=== PATIENT | female | born 1955 | race African-American/Black ===

== ENCOUNTER 2016-08-12 00:36 | Emergency (ER) | payer MEDICAID, OTHER ==
[~2016-08-12] VITALS: Ht 165.1 cm; Wt 59.0 kg
--- NOTE | 2016-08-12 01:02 | ER.PDOC ---
General Chief Complaint: Dyspnea/Respdistress Stated Complaint: FEVER TRAVEL OUT OF US: No Time seen by MD: 00:58 Source: patient Exam Limitations: no limitations History of Present Illness Initial Comments Sent from [facility] for possible aspiration and low Oxygen. Patient is aphasic. Recently discharged from [facility] after receiving treatment for 6 weeks for meningitis. Allergies: Coded Allergies: No Known Allergies (Unverified , 08/12/16) Past Medical History Medical History: hypertension LMP (females 10-50): unknown Social History Smoking: non-smoker Alcohol Use: none Drug Use: none Review of Systems Constitutional: no symptoms reported EENTM: no symptoms reported Respiratory: see HPI Cardiovascular: no symptoms reported Gastrointestinal: no symptoms reported All Other Systems: Reviewed and Negative Physical Exam General Appearance: No Apparent Distress Neck: Non-Tender Respiratory: chest non-tender, lungs clear, normal breath sounds, no respiratory distress CVS: reg rate & rhythm, no murmur, no gallop, pulses nml, nml capillary refill Gastrointestinal: Normal Bowel Sounds, No Organomegaly, No Pulsatile Mass, Other (Feeding tube) Back: Normal Inspection Extremities: Normal Inspection Neurologic/Psychiatric: Aphasia Results/Orders Results/Orders Laboratory Tests Test 08/12/16 00:52 08/12/16 01:15 Blood Gas Sample Site Rt radial artery Blood Gas pH 7.559 (7.350-7.450) Blood Gas PCO2 27.5 mmHg (35.0-45.0) Blood Gas PO2 76.5 mmHg (75.0-100.0) Blood Gas HCO3 24.0 mmol/L (22.0-26.0) Blood Gas Base Excess 2.7 mmol/L (-2.0-2.0) Tej Test Positive Arterial Blood Oxygen Saturation 95.7 % (95-) Deoxyhemoglobin 4.2 % (0.2-0.6) Carboxyhemoglobin 1.4 % (0.5-1.5) Methemoglobin 0.4 % (0.2-0.6) Total Hemoglobin 12.2 % (13.5-17.5) Total Oxygen Concentration 16.2 % (13.5-17.5) Lactic Acid (Blood Gas) 1.5 MMOL/L (0.5-1.0) Blood Gas Temperature 37.0 Oxygen Delivery Method (LAB) Room air FiO2 21 % (20-101) Bicarbonate 24.9 mmol/L (23-27) White Blood Count 11.7 10^3/uL (4.5-11.0) Red Blood Count 3.90 10^6/uL (4.00-5.20) Hemoglobin 10.9 g/dL (12.0-15.0) Hematocrit 35.5 % (36.0-46.0) Mean Corpuscular Volume 91.0 fL (78-100) Mean Corpuscular Hemoglobin 27.9 pg (26-34) Mean Corpuscular Hemoglobin Concent 30.7 g/dL (33-37) Red Cell Distribution Width 17.6 % (11.5-14.5) Platelet Count 432 10^3/uL (150-400) Mean Platelet Volume 9.8 fL (7.8-11.0) Neutrophils (%) (Auto) 68.2 % (41.0-85.0) Lymphocytes (%) (Auto) 17.5 % (24.0-44.0) Monocytes (%) (Auto) 7.4 % (5.0-12.0) Neutrophils # (Auto) 8.0 10^3/uL (1.8-7.7) Lymphocytes # (Auto) 2.1 10^3/uL (1.0-4.8) Monocytes # (Auto) 0.9 10^3/uL (0.3-0.8) Absolute Immature Granulocyte (auto 0.04 10^3 u/L (0-2) Eosinophils % 4.6 % (0.0-5.0) Basophils % 2.0 % (0.0-0.2) Basophils # 0.2 10^3/uL (0.0-0.1) Eosinophil Count 0.5 10^3/uL (0.0-0.2) Sodium Level 153 mmol/L (132-145) Potassium Level 3.8 mmol/L (3.6-5.2) Chloride Level 114.0 mmol/L (96-109) Carbon Dioxide Level 28.0 mmol/L (20.0-32) Anion Gap 14.8 Blood Urea Nitrogen 24 mg/dL (7-18) Creatinine 0.68 mg/dL (0.59-1.40) Estimated GFR () 106.4 BUN/Creatinine Ratio 35.0 Glucose Level 148 mg/dL (70-110) Calculated Osmolality 322.5 Calcium Level 9.6 mg/dL (8.4-10.5) Total Bilirubin 0.1 mg/dL (0.2-1.0) Aspartate Amino Transf (AST/SGOT) 11 U/L (0-35) Alanine Aminotransferase (ALT/SGPT) 18 U/L (12-78) Alkaline Phosphatase 103 U/L (50-136) Total Protein 8.4 g/dL (6.4-8.2) Albumin 3.1 g/dL (3.4-5.0) Globulin 5.3 Percent Immature Gran (Cell Imm) 0.30 % (0.00-0.50) EKG/XRAY/CT/US XRAY: chest (normal) Departure Time of Disposition: 01:50 Disposition: 01 HOME, SELF-CARE Impression: Primary Impression: Dysphagia Qualified Codes: R13.10 - Dysphagia, unspecified Condition: Stable Additional Instructions: Continue home mediations F/U with PCP in 2-3 days ELIZABETH WELCH MD Aug 12, 2016 01:02
[2016-08-12 01:10] LABS: ABG PCO2 27.5 mmHg (35.0-45.0); ABG PH 7.559 (7.350-7.450); BE(B) 2.7 mmol/L (-2.0-2.0); pO2 76.5 mmHg (75.0-100.0)
[2016-08-12 01:26] LABS: BASOPHIL # 0.2 10^3/uL (0.0-0.1); EOSINOPHIL # 0.5 10^3/uL (0.0-0.2); EOSINOPHIL % 4.6 % (0.0-5.0); HEMATOCRIT 35.5 % (36.0-46.0); HEMOGLOBIN 10.9 g/dL (12.0-15.0); LYMPHOCYTES # 2.1 10^3/uL (1.0-4.8); LYMPHOCYTES % 17.5 % (24.0-44.0); MEAN CELL HGB 27.9 pg (26-34); MEAN CELL HGB CONCENTRATION 30.7 g/dL (33-37); MEAN PLATELET VOLUME 9.8 fL (7.8-11.0); MONOCYTES # 0.9 10^3/uL (0.3-0.8); MONOCYTES % 7.4 % (5.0-12.0); NEUTROPHILS % 68.2 % (41.0-85.0); RED CELL DISTRIBUTION WIDTH 17.6 % (11.5-14.5); WHITE BLOOD CELL 11.7 10^3/uL (4.5-11.0)
--- NOTE | 2016-08-12 01:32 | DIREP ---
PROCEDURE:CHEST 1 VIEW COMPARISON:None. INDICATIONS:Fever FINDINGS: LUNGS/PLEURA:No significant pulmonary parenchymal abnormalities. No effusions. VASCULATURE:Normal. Unremarkable pulmonary vasculature. CARDIAC:Normal. No cardiac silhouette abnormality or cardiomegaly. MEDIASTINUM:Normal. No visible mass or adenopathy. BONES:Normal. No fracture or visible bony lesion. OTHER:Negative. CONCLUSION:Normal examination. Dictated by: Abel Mcarthur Jr. on 08/12/2016 at 01:31 AM
[2016-08-12 01:44] LABS: CALCIUM 9.6 mg/dL (8.4-10.5)
[2016-08-12 02:15] VITALS: BP 139/86
--- NOTE | 2016-08-12 02:15 | NUR ---
[facility] HERE FOR TRANSFER TO [place]
== END 2016-08-12 02:15 | disposition home or self-care (01) ==
LOC: ER 00:36
DX: R13.10 Dysphagia, unspecified (principal); I10 Essential (primary) hypertension; R47.01 Aphasia; R50.9 Fever, unspecified; Z97.8 Presence of other specified devices
CPT/HCPCS: 36415; 36600; 71010; 80053; 82803; 85025; 87040; 99284; 99285

== ENCOUNTER 2016-08-13 09:57 | Emergency (ER) | payer MEDICAID, OTHER ==
[~2016-08-13] VITALS: Ht 162.6 cm; Wt 57.6 kg
--- NOTE | 2016-08-13 09:57 | NUR ---
ARRIVAL PT TO RM 1 VIA EMS. PT AWAKE BUT NOT FOLLOWING COMMANDS. PT HAS HCM IN PLACE. PT WILL LOOK YOU IN THE EYE AT TIMES BUT WILL NOT FOLLOW COMMANDS. PIV STARTED RT FOREARM 18G. NS GOING WIDE OPEN. PT PLACED ON MONITOR AND TRIAGE DONE
[2016-08-13] MEDS ORDERED: TYLENOL PO ONE (10:16)
[2016-08-13 10:18] LABS: BASOPHIL # 0.1 10^3/uL (0.0-0.1); BASOPHIL % 0.6 % (0.0-0.2); HEMATOCRIT 38.9 % (36.0-46.0); HEMOGLOBIN 11.4 g/dL (12.0-15.0); LYMPHOCYTES # 0.7 10^3/uL (1.0-4.8); LYMPHOCYTES % 4.6 % (24.0-44.0); MEAN CELL HGB 27.3 pg (26-34); MEAN CELL HGB CONCENTRATION 29.3 g/dL (33-37); MEAN CORP VOLUME 93.1 fL (78-100); MEAN PLATELET VOLUME 9.5 fL (7.8-11.0); MONOCYTES # 1.1 10^3/uL (0.3-0.8); MONOCYTES % 7.3 % (5.0-12.0); NEUTROPHIL # 12.7 10^3/uL (1.8-7.7); NEUTROPHILS % 87.4 % (41.0-85.0); PLATELET COUNT 429 10^3/uL (150-400); RED CELL DISTRIBUTION WIDTH 17.9 % (11.5-14.5); WHITE BLOOD CELL 14.6 10^3/uL (4.5-11.0)
[2016-08-13 10:27] LABS: ABG PCO2 36.8 mmHg (35.0-45.0); ABG PH 7.429 (7.350-7.450); BE(B) -0.2 mmol/L (-2.0-2.0); HCO3act 23.8 mmol/L (22.0-26.0); pO2 65.9 mmHg (75.0-100.0)
[2016-08-13] MEDS ORDERED: FEVERALL RC ONE (10:28)
--- NOTE | 2016-08-13 10:30 | NUR ---
PEG TUBE ATTEMPTED TO IRRIGATE G TUBE. UNABLE TO PASS ANYTHING. APPEARS TO HAVE PARTICULATE IN THE TUBING
--- NOTE | 2016-08-13 10:43 | DIREP ---
PROCEDURE:CHEST 1 VIEW COMPARISON:[facility], CR, XRAY CHEST SINGLE VW, 08/12/2016, 00:30 AM. INDICATIONS:RESP DISTRESS FINDINGS: LUNGS/PLEURA:Slight prominence of interstitial markings in both lungs most likely related to fibrotic stranding. No definite acute pulmonary parenchymal abnormalities. No effusions. VASCULATURE:Normal. Unremarkable pulmonary vasculature. CARDIAC:Normal. No cardiac silhouette abnormality or cardiomegaly. MEDIASTINUM:Normal. No visible mass or adenopathy. BONES:Mild degenerative changes in the thoracic spine. OTHER:Negative. CONCLUSION:Mild degenerative changes in the thoracic spine. Slight prominence of interstitial markings in both lungs most likely related to fibrotic stranding. No definite evidence of acute abnormalities. These findings are unchanged from August 12, 2016. If clinical symptoms persist or worsen, CT scan could be of aid in further evaluation for a subtle abnormality. Dictated by: Armen Caban M.D. on 08/13/2016 at 10:38 AM
[2016-08-13 10:44] LABS: CALCIUM 9.6 mg/dL (8.4-10.5); CARBON DIOXIDE 27.8 mmol/L (20.0-32)
[2016-08-13 11:19] LABS: BILIRUBIN,URINE NEGATIVE (NEGATIVE); UROBILINOGEN,URINE NORMAL (NEGATIVE)
--- NOTE | 2016-08-13 11:23 | NUR ---
[facility] CALLED [facility] TRANSFER LINE FOR TRANSFER ARRANGEMENT. PER [facility] THEY WILL FIND AN ICU DOCTOR AND WILL CALL THE ED BACK
[2016-08-13 11:27] LABS: APPEARANCE,URINE CLOUDY (CLEAR); UA COLOR STRAW (YELLOW)
[2016-08-13 11:28] LABS: WBC,URINE TNTC WBC/HPF (0-2)
--- NOTE | 2016-08-13 11:29 | NUR ---
[facility] CALLED BACK INFORMING US THAT THEY HAVE NO ICU BEDS
--- NOTE | 2016-08-13 11:31 | ER.PDOC ---
General Chief Complaint: Dyspnea/Respdistress Stated Complaint: RESP DISTRESS Time seen by MD: 11:23 Source: EMS, group home records Exam Limitations: clinical condition History of Present Illness Initial Comments Respiratory distress today. Patient recently discharged from [facility] after spending 14 weeks for bacterial meningitis. She is aphasic. Timing/Duration: 4-6 hours Severity: moderate Allergies: Coded Allergies: No Known Allergies (Unverified , 08/12/16) Past Medical History Medical History: cardiac problems, COPD, diabetes, hypertension Social History Smoking: non-smoker Alcohol Use: none Drug Use: none Review of Systems Constitutional: no symptoms reported Respiratory: see HPI Cardiovascular: no symptoms reported Gastrointestinal: no symptoms reported Musculoskeletal: no symptoms reported Skin: no symptoms reported All Other Systems: Reviewed and Negative Physical Exam General Appearance: No Apparent Distress, WD/WN, Other (aphasic) Neck: Non-Tender, Full Range of Motion, Supple, Normal Inspection Respiratory: chest non-tender, lungs clear, normal breath sounds, no respiratory distress, no accessory muscle use Cardiovascular: Normal Peripheral Pulses, Regular Rate, Rhythm, No Edema, Tachycardia Gastrointestinal: Normal Bowel Sounds, No Organomegaly, No Pulsatile Mass, Non Tender, Other (Feeding tube in place) Extremities: Normal Inspection Neurologic/Psychiatric: Aphasia Results/Orders Results/Orders Laboratory Tests Test 08/13/16 10:05 08/13/16 10:25 08/13/16 11:15 White Blood Count 14.6 10^3/uL (4.5-11.0) Red Blood Count 4.18 10^6/uL (4.00-5.20) Hemoglobin 11.4 g/dL (12.0-15.0) Hematocrit 38.9 % (36.0-46.0) Mean Corpuscular Volume 93.1 fL (78-100) Mean Corpuscular Hemoglobin 27.3 pg (26-34) Mean Corpuscular Hemoglobin Concent 29.3 g/dL (33-37) Red Cell Distribution Width 17.9 % (11.5-14.5) Platelet Count 429 10^3/uL (150-400) Mean Platelet Volume 9.5 fL (7.8-11.0) Neutrophils (%) (Auto) 87.4 % (41.0-85.0) Lymphocytes (%) (Auto) 4.6 % (24.0-44.0) Monocytes (%) (Auto) 7.3 % (5.0-12.0) Neutrophils # (Auto) 12.7 10^3/uL (1.8-7.7) Lymphocytes # (Auto) 0.7 10^3/uL (1.0-4.8) Monocytes # (Auto) 1.1 10^3/uL (0.3-0.8) Absolute Immature Granulocyte (auto 0.01 10^3 u/L (0-2) Eosinophils % 0.0 % (0.0-5.0) Basophils % 0.6 % (0.0-0.2) Basophils # 0.1 10^3/uL (0.0-0.1) Eosinophil Count 0.0 10^3/uL (0.0-0.2) Prothrombin Time 11.3 SEC (9.8-11.9) Prothromb Time International Ratio 1.1 Activated Partial Thromboplast Time 21.6 SEC (24.67-30.72) D-Dimer 7.76 mg/L (0.19-0.41) Sodium Level 153 mmol/L (132-145) Potassium Level 4.0 mmol/L (3.6-5.2) Chloride Level 114.0 mmol/L (96-109) Carbon Dioxide Level 27.8 mmol/L (20.0-32) Anion Gap 15.2 Blood Urea Nitrogen 35 mg/dL (7-18) Creatinine 0.93 mg/dL (0.59-1.40) Estimated GFR () 74.2 BUN/Creatinine Ratio 37.0 Glucose Level 249 mg/dL (70-110) Calculated Osmolality 331.5 Calcium Level 9.6 mg/dL (8.4-10.5) Total Bilirubin 0.2 mg/dL (0.2-1.0) Aspartate Amino Transf (AST/SGOT) 10 U/L (0-35) Alanine Aminotransferase (ALT/SGPT) 19 U/L (12-78) Alkaline Phosphatase 116 U/L (50-136) Total Creatine Kinase 20 U/L (26-192) Creatine Kinase MB 0.4 ng/mL (0.5-3.6) Troponin I 0.17 ng/mL (0.00-0.05) Pro-B-Type Natriuretic Peptide 145 pg/mL (0-125) Total Protein 8.6 g/dL (6.4-8.2) Albumin 3.1 g/dL (3.4-5.0) Globulin 5.5 Percent Immature Gran (Cell Imm) 0.10 % (0.00-0.50) Blood Gas Sample Site Rt bracial artery Blood Gas pH 7.429 (7.350-7.450) Blood Gas PCO2 36.8 mmHg (35.0-45.0) Blood Gas PO2 65.9 mmHg (75.0-100.0) Blood Gas HCO3 23.8 mmol/L (22.0-26.0) Blood Gas Base Excess -0.2 mmol/L (-2.0-2.0) Tej Test N/a Arterial Blood Oxygen Saturation 91.3 % (95-) Deoxyhemoglobin 8.6 % (0.2-0.6) Carboxyhemoglobin 1.0 % (0.5-1.5) Methemoglobin 0.6 % (0.2-0.6) Total Hemoglobin 12.1 % (13.5-17.5) Total Oxygen Concentration 15.3 % (13.5-17.5) Lactic Acid (Blood Gas) 2.6 MMOL/L (0.5-1.0) Blood Gas Temperature 37 Oxygen Delivery Method (LAB) Non-rebreather mask FiO2 100 % (20-101) Bicarbonate 25.0 mmol/L (23-27) Urine Collection Type Cath Urine Color Straw (YELLOW) Urine Appearance Cloudy (CLEAR) Urine Bilirubin Negative MG/DL (NEGATIVE) Urine Ketones Negative (NEGATIVE) Urine Specific [place] 1.020 (1.005-1.035) Urine pH 6 (5.0-6.0) Urine Protein Negative (NEGATIVE) Urine Urobilinogen Normal (NEGATIVE) Urine Nitrate Positive (NEGATIVE) Urine Leukocyte Esterase 500/ul 2+ (NEGATIVE) Urine Blood 250 4+ (NEGATIVE) Urine RBC Tntc RBC/HPF (NONE SEEN) Urine WBC Tntc WBC/HPF (0-2) Urine Squamous Epithelial Cells Rare #/HPF (FEW) Urine Calcium Oxalate Crystals Many (NONE SEEN) Urine Bacteria Many (NONE SEEN) Urine Glucose Normal (NEGATIVE) Administered Medications Medications (Trade) Dose Ordered Sig/Rocio Route PRN Reason Start Time Stop Time Status Last Admin Dose Admin Levofloxacin/ Dextrose 150 ml @ 100 mls/hr STAT ONCE IV 08/13/16 12:30 08/13/16 13:59 08/13/16 12:07 Sodium Chloride 1,728 ml @ 1,200 mls/hr OT STAT IV 08/13/16 12:05 08/13/16 13:31 08/13/16 12:07 Progress Progress Spoke to Sister Omega Hurtado and yunior. Explained detailly of what is going on and they both understood and appreciated the care. They both thanked me. EKG/XRAY/CT/US EKG Comments: Sinus tachycardia XRAY: chest (Nothing acute) Departure Time of Disposition: 12:40 Disposition: 02 XFER SHT-TRM HOSP Impression: Primary Impression: Sepsis Additional Impressions: Respiratory failure UTI (urinary tract infection) STEMI (ST elevation myocardial infarction) Condition: Stable Referrals: KEESHA INFANTE (PCP) PRIMARY CARE PROVIDER Comments Transfer to [facility] for Dr. Gupta. Critical Care Note Total Time (mins): 90 Problem Qualifiers Primary Impression: Sepsis Sepsis type: sepsis due to unspecified organism Qualified Codes: A41.9 - Sepsis, unspecified organism Additional Impressions: Respiratory failure Chronicity: acute Respiratory failure complication: hypoxia Qualified Codes : J96.01 - Acute respiratory failure with hypoxia UTI (urinary tract infection) Urinary tract infection type: catheter-associated UTI Indwelling urinary catheter type: indwelling urethral catheter Encounter type: initial encounter Qualified Codes: T83.511A - Infection and inflammatory reaction due to indwelling urethral catheter, initial encounter; N39.0 - Urinary tract infection, site not specified STEMI (ST elevation myocardial infarction) Involved coronary artery: unspecified coronary artery Qualified Codes: I21.3 - ST elevation (STEMI) myocardial infarction of unspecified site ELIZABETH WELCH MD Aug 13, 2016 11:31
--- NOTE | 2016-08-13 11:34 | NUR ---
[facility] CALLED [facility], TALKED TO [facility], FOR [facility] ICU BEDS. THEIR ER DR IS IN A PT RM AND WILL CALL DR WELCH BACK
[2016-08-13] MEDS ORDERED: NS 1000ML 1,000 ML ONE (11:58)
[2016-08-13] MEDS ORDERED: LEVAQUIN 150 ML IV ONE ×2 (11:58→12:30)
[2016-08-13] MEDS ORDERED: NS IV STA (12:05)
--- NOTE | 2016-08-13 12:10 | NUR ---
DR DAVE HOOK MBA ON PHONE WITH ACCEPTING DR ACOSTA WITH [facility]
--- NOTE | 2016-08-13 12:30 | NUR ---
[facility] DISPATCHED [facility] FOR TRANSFER TO [facility]
[2016-08-13] MEDS ORDERED: TYLENOL RC STA (12:34)
[2016-08-13] MEDS ORDERED: LOVENOX SQ STA (12:36)
[2016-08-13] MEDS ORDERED: LOVENOX SQ ONE (12:39)
--- NOTE | 2016-08-13 12:46 | NUR ---
[facility] NOTIFIED OF TRANSFER
--- NOTE | 2016-08-13 12:55 | NUR ---
[facility] ADDISON EPPS, GIVING REPORT TO [facility]
[2016-08-13 13:05] VITALS: BP 110/67
--- NOTE | 2016-08-13 13:24 | NUR ---
REPORT GIVEN TO MARK YUSUF RN AT [facility]
[2016-08-13 13:25] LABS: BASOPHIL 1 % (0-2); EOSINOPHIL 2 % (1-4); LYMPHOCYTE 2 % (25-36); MONOCYTE 6 % (3-9); SEGMENTED NEUTROPHILS 89 % (31-76)
[2016-08-13 13:26] LABS: TOXIC GRANULATION 1+ (NEGATIVE)
== END 2016-08-13 13:02 | disposition short-term general hospital (02) ==
LOC: EDBD 09:57 → ER 09:57
DX: A41.9 Sepsis, unspecified organism (principal); J96.01 Acute respiratory failure with hypoxia; T83.511A Infection and inflammatory reaction due to indwelling urethral catheter, initial encounter; N39.0 Urinary tract infection, site not specified; I21.3 ST elevation (STEMI) myocardial infarction of unspecified site; R47.01 Aphasia; I10 Essential (primary) hypertension; E11.9 Type 2 diabetes mellitus without complications; J44.9 Chronic obstructive pulmonary disease, unspecified; Z97.8 Presence of other specified devices
CPT/HCPCS: 36415; 36600; 71010; 80053; 81000; 82550; 82553; 82803; 83880; 84484; 85007; 85025; 85379; 85610; 85730; 87040 ×2; 87077; 87086; 87186 ×2; 93005; 96365; 96372; 99291; 99292; J1650; J1956; J7030

== ENCOUNTER 2016-08-29 11:21 | Inpatient (IN) | payer MEDICAID, OTHER ==
[~2016-08-29] VITALS: Ht 162.6 cm; Wt 69.0 kg
--- NOTE | 2016-08-29 11:42 | NUR ---
TRIAGE BROUGHT IN BY AMBULANCE FROM THE PRISON TO ROOM 2. MONITORS APPLIED. PATIENT HAS A TEMP OF 100.4 AXILLARY. REPORT IS THAT SHE HAD 101 TEMP AT THE PRISON AND WAS GIVEN TYLENOL THROUGH HER PEG TUBE. HYSTORY OF ENCEPHALOPATHY. PATIENT IS AWAKE, BUT NON-RESPONSIVE AND UNABLE TO WALK. EYES ARE OPEN, BUT UNABLE TO FOLLOW COMMANDS. REPORT IS THAT SHE IS NORMALLY THIS WAY AND HAS BEEN FOR SOME TIME. IV IN THE RIGHT FOREARM WITH NORMAL SALINE INFUSING. DR FORREST HERE TO SEE PATIENT. LW
[2016-08-29 12:05] LABS: BASOPHIL # 0.1 10^3/uL (0.0-0.1); BASOPHIL % 1.2 % (0.0-0.2); EOSINOPHIL # 0.6 10^3/uL (0.0-0.2); HEMATOCRIT 35.1 % (36.0-46.0); HEMOGLOBIN 10.2 g/dL (12.0-15.0); LYMPHOCYTES # 2.2 10^3/uL (1.0-4.8); LYMPHOCYTES % 19.1 % (24.0-44.0); MEAN CELL HGB 27.7 pg (26-34); MEAN CELL HGB CONCENTRATION 29.1 g/dL (33-37); MEAN CORP VOLUME 95.4 fL (78-100); MEAN PLATELET VOLUME 9.5 fL (7.8-11.0); MONOCYTES # 0.9 10^3/uL (0.3-0.8); MONOCYTES % 7.4 % (5.0-12.0); NEUTROPHIL # 7.9 10^3/uL (1.8-7.7); NEUTROPHILS % 67.1 % (41.0-85.0); RED CELL DISTRIBUTION WIDTH 18.2 % (11.5-14.5); WHITE BLOOD CELL 11.7 10^3/uL (4.5-11.0)
[2016-08-29 12:35] LABS: ALANINE AMINOTRANSFERASE 29 U/L (12-78); ALKALINE PHOSPHATASE 106 U/L (50-136); ASPARTATE AMINO TRANSFERASE 14 U/L (0-35); CALCIUM 10.2 mg/dL (8.4-10.5); CARBON DIOXIDE 33.6 mmol/L (20.0-32); GLUCOSE 160 mg/dL (70-110)
--- NOTE | 2016-08-29 12:38 | DIREP ---
PROCEDURE:CHEST 1 VIEW COMPARISON:[facility], CR, XRAY CHEST SINGLE VW, 08/12/2016, 00:30 AM. [facility], CR, XRAY CHEST SINGLE VW, 08/13/2016, 09:41 AM. INDICATIONS:fever FINDINGS: LUNGS/PLEURA:Subsegmental atelectasis is seen in both lung bases. No infiltrates are seen bilaterally. VASCULATURE:Normal. Unremarkable pulmonary vasculature. CARDIAC:Normal. No cardiac silhouette abnormality or cardiomegaly. MEDIASTINUM:Normal. No visible mass or adenopathy. BONES:Normal. No fracture or visible bony lesion. OTHER:Negative. CONCLUSION:There are findings of subsegmental atelectasis in both lung bases without focal infiltrate or consolidation. Dictated by: Paul Gregorio M.D. on 08/29/2016 at 12:36 PM
[2016-08-29 12:47] LABS: BILIRUBIN,URINE NEGATIVE (NEGATIVE); UA COLOR STRAW (YELLOW); UROBILINOGEN,URINE NORMAL (NEGATIVE)
[2016-08-29 12:48] LABS: APPEARANCE,URINE SLIGHTLY HAZY (CLEAR)
[2016-08-29 12:49] LABS: YEAST,URINE FEW
--- NOTE | 2016-08-29 13:08 | NUR ---
DR JARAD FORREST ON PHONE WITH DR ABRAHAM
[2016-08-29] MEDS: ROCEPHIN 1,000 MG in NS 100ML 100 ML IV SCH ×2 (13:42→15:20)
--- NOTE | 2016-08-29 13:42 | ER.PDOC ---
General Chief Complaint: Fever Stated Complaint: POSS SEPSIS/UTI TRAVEL OUT OF US: No Time seen by MD: 13:33 Source: EMS, [facility] records Exam Limitations: clinical condition, other (encephalitis , cerebral palsy) History of Present Illness Timing/Duration: 4-6 hours Severity: mild Allergies: Coded Allergies: No Known Allergies (Unverified , 08/12/16) Past Medical History Medical History: other (ENCEPHAITIS, BED RIDDEN, CONTRACTURES) Social History Smoking: non-smoker Alcohol Use: none Drug Use: none Review of Systems All Other Systems: Reviewed and Negative Physical Exam General Appearance: No Apparent Distress EENT: eyes nml inspection Neck: Non-Tender Respiratory: chest non-tender CVS: reg rate & rhythm Gastrointestinal: Normal Bowel Sounds Back: Normal Inspection Extremities: Other (CONTRACTURES) Neurologic/Psychiatric: Abnormal Cerebellar Tests, Motor Weakness Skin: Decubitus (TROCHANTERIC AREAS) Results/Orders Results/Orders Laboratory Tests Test 08/29/16 11:55 08/29/16 12:13 White Blood Count 11.7 10^3/uL (4.5-11.0) Red Blood Count 3.68 10^6/uL (4.00-5.20) Hemoglobin 10.2 g/dL (12.0-15.0) Hematocrit 35.1 % (36.0-46.0) Mean Corpuscular Volume 95.4 fL (78-100) Mean Corpuscular Hemoglobin 27.7 pg (26-34) Mean Corpuscular Hemoglobin Concent 29.1 g/dL (33-37) Red Cell Distribution Width 18.2 % (11.5-14.5) Platelet Count 386 10^3/uL (150-400) Mean Platelet Volume 9.5 fL (7.8-11.0) Neutrophils (%) (Auto) 67.1 % (41.0-85.0) Lymphocytes (%) (Auto) 19.1 % (24.0-44.0) Monocytes (%) (Auto) 7.4 % (5.0-12.0) Neutrophils # (Auto) 7.9 10^3/uL (1.8-7.7) Lymphocytes # (Auto) 2.2 10^3/uL (1.0-4.8) Monocytes # (Auto) 0.9 10^3/uL (0.3-0.8) Absolute Immature Granulocyte (auto 0.02 10^3 u/L (0-2) Eosinophils % 5.0 % (0.0-5.0) Basophils % 1.2 % (0.0-0.2) Basophils # 0.1 10^3/uL (0.0-0.1) Eosinophil Count 0.6 10^3/uL (0.0-0.2) Sodium Level 158 mmol/L (132-145) Potassium Level 3.9 mmol/L (3.6-5.2) Chloride Level 117.0 mmol/L (96-109) Carbon Dioxide Level 33.6 mmol/L (20.0-32) Anion Gap 11.3 Blood Urea Nitrogen 39 mg/dL (7-18) Creatinine 0.72 mg/dL (0.59-1.40) Estimated GFR () 99.6 BUN/Creatinine Ratio 54.0 Glucose Level 160 mg/dL (70-110) Calcium Level 10.2 mg/dL (8.4-10.5) Total Bilirubin 0.2 mg/dL (0.2-1.0) Aspartate Amino Transf (AST/SGOT) 14 U/L (0-35) Alanine Aminotransferase (ALT/SGPT) 29 U/L (12-78) Alkaline Phosphatase 106 U/L (50-136) Total Creatine Kinase 14 U/L (26-192) Creatine Kinase MB 0.0 ng/mL (0.5-3.6) Troponin I < 0.02 ng/mL (0.00-0.05) Pro-B-Type Natriuretic Peptide 91 pg/mL (0-125) Total Protein 8.0 g/dL (6.4-8.2) Albumin 3.0 g/dL (3.4-5.0) Globulin 5.0 Percent Immature Gran (Cell Imm) 0.20 % (0.00-0.50) Urine Collection Type Unknown Urine Color Straw (YELLOW) Urine Appearance Slightly hazy (CLEAR) Urine Bilirubin Negative MG/DL (NEGATIVE) Urine Ketones Negative (NEGATIVE) Urine Specific [place] 1.015 (1.005-1.035) Urine pH 8 (5.0-6.0) Urine Protein Negative (NEGATIVE) Urine Urobilinogen Normal (NEGATIVE) Urine Nitrate Negative (NEGATIVE) Urine Leukocyte Esterase 100/ul 1+ (NEGATIVE) Urine Blood 250 4+ (NEGATIVE) Urine RBC Tntc RBC/HPF (NONE SEEN) Urine WBC 10-25 WBC/HPF (0-2) Urine Squamous Epithelial Cells Rare #/HPF (FEW) Urine Calcium Oxalate Crystals Moderate (NONE SEEN) Urine Amorphous Sediment Moderate (NONE SEEN) Urine Bacteria Rare (NONE SEEN) Urine Yeast Few Urine Glucose Normal (NEGATIVE) Consult/PCP Time Consult/PCP Called: 14:00 Consult/PCP: DR ABRAHAM #2 EKG: NSR, no ST T wave changes Departure Time of Disposition: 14:22 Disposition: 09 ADMITTED INPATIENT Impression: Primary Impression: Urinary tract infection Referrals: KEESHA INFANTE (PCP) PRIMARY CARE PROVIDER PATITO FORREST MD Aug 29, 2016 13:42
[2016-08-29] MEDS ORDERED: NS 1000ML 1,000 ML IV ONE (14:00)
--- NOTE | 2016-08-29 14:06 | PRM.ACF1 ---
Admission Criteria Forms URINARY COMPLICATIONS Clinical Indications for Inpatient Care (Place 'X' for any and all applicable criteria): Ongoing inpatient care may be indicated for urinary complications with ANY ONE of the following: [X ]I. Urinary tract infection requiring inpatient care as indicated by ANY ONE of the following(8)(19)(20): [ ]a) Severe symptoms (eg, high fever, severe pain) [ ]b) Vomiting or dehydration requiring ongoing inpatient care [X ]c) IV antibiotic needs that cannot be managed at lower level of care [ ]d) Hemodynamic instability [ ]e) Obstruction of collecting system by stone or tumor [ ]II. Urinary retention requiring drainage or surgery (3)(4)(5)(17)(18) [ ]III. Renal failure (Use Renal Failure Criteria for further information.) [ ]IV. Oliguria(30) [ ]V. Post obstructive diuresis requiring close monitoring of urine output and intravenous compensation for excessive fluid losses(33) Extended stay beyond goal length of stay for primary condition may be needed until ALL of the following are present(3)(4)(5)(8): [ ]a) Renal function (creatinine) at baseline, or daily decreases in creatinine consistent with renal function return [ ]b) Voiding adequately or with urinary catheter or percutaneous suprapubic tube and management regimen in place that is performable at lower level of care. [ ]c) Urine output adequate [ ]d) Fever absent or resolving [ ]e) Infection absent or treatable at next level of care The original [employer] content created by [employer] has been revised. The portions of the content which have been revised are identified through the use of italic text or in bold, and [facility] has neither reviewed nor approved the modified material. All other unmodified content is copyright [facility] Please see references footnoted in the original [facility] edition 2016 Physician order is complete/pr: Yes Is [facility] added/comple: YES JAMIR FELICIANO Aug 29, 2016 14:06
--- NOTE | 2016-08-29 14:30 | NUR ---
Arrival Patient arrived on unit via stretcher to room 310. Report received from ADDISON Ascencio. Assumed care of patient
[2016-08-29 17:26] VITALS: BP 124/8
--- NOTE | 2016-08-29 18:02 | NUR ---
Dr. Dupont Notified Dr. Dupont regarding patients feedings. Awaiting call back.
[2016-08-29 20:00] VITALS: BP 130/77
--- NOTE | 2016-08-29 20:15 | NUR ---
tube feedings started at 60 cc hr per peg tube as ordered , flushed with 60cc of H20 prior with good results
[2016-08-29] MEDS ORDERED: NS 1000ML 1,000 ML ONE (20:37)
--- NOTE | 2016-08-30 00:10 | NUR ---
oral care given at this time , turned tolerated well
[2016-08-30] MEDS ORDERED: ONDA4TAB10 PEG (03:27)
[2016-08-30] MEDS ORDERED: AMLO5TAB2 PEG (03:27)
[2016-08-30] MEDS ORDERED: ASPI-484 PEG (03:27)
[2016-08-30] MEDS ORDERED: METO25TA4 PEG (03:27)
[2016-08-30] MEDS ORDERED: ACET500T73 PEG (03:27)
[2016-08-30] MEDS ORDERED: LEVO500T34 PO (03:27)
[2016-08-30] MEDS ORDERED: [UNRECOGNIZED DRUG - CODE] MC (03:27)
[2016-08-30] MEDS ORDERED: INSU100I13 SQ (03:27)
[2016-08-30] MEDS ORDERED: FLUC100T4 PEG (03:27)
[2016-08-30 04:33] VITALS: BP 130/77
--- NOTE | 2016-08-30 07:45 | NUR ---
DISCHARGE PLAN PATIENT IS A RESIDENT @ [facility]. CM NOTIFIED [facility] AND SPOKE TO YUE [employer]ION EDUCATOR REGARDING PATIENTS HOSPITAL ADMISSION AND DISCHARGE PLAN. YUE STATED PATIENT IS A RESIDENT WITH [facility] AND HAS BEEN SINCE DISCHARGE FROM [facility] A FEW WEEKS AGO. SHE STATED PATIENT IS A [employer], IS WHEELCHAIR BOUND AND IS "OKAY" TO DISCHARGE BACK TO FACILITY UPON HOSPITAL DISCHARGE. CM TO CONTINUE TO FOLLOW PATIENTS PLAN OF CARE AND FOR FURTHER DISCHARGE NEEDS.
--- NOTE | 2016-08-30 08:35 | NUR ---
Home meds Informed Dr. Lovell of patient needing home meds continued.
[2016-08-30 08:37] VITALS: BP 132/74
--- NOTE | 2016-08-30 11:51 | NUR ---
Bath patient had some stool incontinence. cleaned and given bed bath. chnaged gentle border dressing to sacrum. applied barrier creamm to joana area.
--- NOTE | 2016-08-30 11:58 | PRM.PN ---
Subjective Subjective Subjective seen and examined. Nonverbal and unresponsive due to pre-existing chronic encephalopathy labs showed hyponatremia evidence of UTI with mild leukocytosis decubitus ulcers Positive blood culture with G+ cocci Patient History: No known health problems VTE VTE Risk Total Score: 2 VTE Risk Score VTE Risk: Score 0-1 = Low Risk (Aggressive mobilization; early ambulation; no VTE prophylaxis required) Score 2: Moderate Risk (Intermittent/Pneumatic Compression Device OR Lovenox/Heparin/Coumadin) Score 3-4: High Risk (Intermittent/Pneumatic Compression Device AND Lovenox/Heparin/Coumadin) Score > or =5: Highest Risk (Intermittent/Pneumatic Compression Device AND Lovenox/Heparin/Coumadin) Review of Systems Allergies: Coded Allergies: No Known Allergies (Unverified , 08/12/16) Scheduled Amlodipine Besylate (Amlodipine Besylate), 5 MG PEG DAILY, (Reported) Aspirin (Aspir 81), 81 MG PEG DAILY, (Reported) Blood Sugar Diagnostic (Blood Glucose Test), 1 EACH MC BID, (Reported) Fluconazole (Fluconazole), 100 MG PEG DAILY, (Reported) Insulin Glargine,Hum.rec.anlog (Lantus Solostar), 8 UNIT SQ HS, (Reported) Levofloxacin (Levaquin), 500 MG PO DAILY, (Reported) Metoprolol Tartrate 25MG (Lopresser 25MG), 25 MG PEG DAILY, (Reported) Ondansetron (Zofran Odt), 4 MG PEG Q8, (Reported) Scheduled PRN Acetaminophen (Acetaminophen), 500 MG PEG Q6 PRN for PAIN, (Reported) Objective Vitals and I/O Vital Sign - Last 24 Hours 08/29/16 08/29/16 08/29/16 08/29/16 12:43 13:58 14:15 17:26 Temp 98.7 Pulse 83 78 83 88 Resp 20 20 20 16 B/P (MAP) 117/69 (85) 132/81 (98) 126/74 (91) 124/8 (46) Pulse Ox 94 95 95 96 08/29/16 08/29/16 08/30/16 08/30/16 17:57 20:00 00:30 04:33 Temp 97.1 98.4 Pulse 87 87 Resp 16 18 B/P (MAP) 130/77 (94) 130/77 (94) Pulse Ox 99 100 O2 Delivery Nasal Cannula Nasal Canula Nasal Cannula Nasal Canula O2 Flow Rate 2.00 2.00 08/30/16 08/30/16 07:01 08:37 Temp 100.0 Pulse 63 Resp 20 B/P (MAP) 132/74 (93) Pulse Ox 99 O2 Delivery Nasal Cannula O2 Flow Rate 2.00 Intake and Output 08/29/16 08/29/16 08/30/16 15:00 23:00 07:00 Intake Total 488 ml Output Total 401 ml Balance 87 ml HEENT: Atraumatic Neck: Supple Lungs: Clear to auscultation Heart: Regular rate Abdomen: Normal bowel sounds Extremities: No clubbing Neuro: Other ( findings of decerebration) Medication Reconciliation Scheduled Amlodipine Besylate (Amlodipine Besylate), 5 MG PEG DAILY, (Reported) Aspirin (Aspir 81), 81 MG PEG DAILY, (Reported) Blood Sugar Diagnostic (Blood Glucose Test), 1 EACH MC BID, (Reported) Fluconazole (Fluconazole), 100 MG PEG DAILY, (Reported) Insulin Glargine,Hum.rec.anlog (Lantus Solostar), 8 UNIT SQ HS, (Reported) Levofloxacin (Levaquin), 500 MG PO DAILY, (Reported) Metoprolol Tartrate 25MG (Lopresser 25MG), 25 MG PEG DAILY, (Reported) Ondansetron (Zofran Odt), 4 MG PEG Q8, (Reported) Scheduled PRN Acetaminophen (Acetaminophen), 500 MG PEG Q6 PRN for PAIN, (Reported) Assessment/Plan Assessment/Plan Assessment/Plan Bacteremia: UTI Vs Skin - continue Rocephin - IV antibiotics with IV fluids -Sepsis protocol - HD stable, no signs of septic shock -monitor closely Problems: Patient History: No known health problems PIEDAD ANDREW MD Aug 30, 2016 11:58
[2016-08-30] MEDS ORDERED: NOVOLIN R SUBCUT SCH (12:00)
[2016-08-30] MEDS ORDERED: NS 1000ML 1,000 ML ONE (12:02)
[2016-08-30] MEDS ORDERED: ZOFRAN ODT ONE (12:08)
[2016-08-30] MEDS: NS 1000ML 1,000 ML IV SCH ×2 (12:08→19:55)
[2016-08-30] MEDS: LOVENOX SQ SCH (12:09)
[2016-08-30 13:02] VITALS: BP 128/80
[2016-08-30] MEDS: ROCEPHIN 1,000 MG in NS 100ML 100 ML IV SCH (13:23)
[2016-08-30] MEDS: ZOFRAN ODT PEG SCH ×2 (13:23→22:45)
[2016-08-30 14:07] LABS: ABG PCO2 44.9 mmHg (35.0-45.0); ABG PH 7.435 (7.350-7.450); BE(B) 4.6 mmol/L (-2.0-2.0); HCO3act 29.5 mmol/L (22.0-26.0); pO2 125.6 mmHg (75.0-100.0)
[2016-08-30] MEDS ORDERED: LACTATED RINGERS 1,000 ML ONE ×2 (15:00→20:16)
--- NOTE | 2016-08-30 16:06 | NUR ---
wound care wound care nurses in room with patient
[2016-08-30 16:55] VITALS: BP 134/81
[2016-08-30] MEDS: HUMULIN R SQ SCH (17:15)
[2016-08-30] MEDS: LACTATED RINGERS IV SCH ×2 (17:30→21:32)
--- NOTE | 2016-08-30 18:19 | NUR ---
incontinence patient had loose bowel movement. cleaned and given bed bath. changed gown and linens. applied barrier cream to joana area and antifungal cream to armpits.
[2016-08-30 20:12] VITALS: BP 128/77
[2016-08-30] MEDS: ACCU-CHEK MC SCH (21:00)
[2016-08-30] MEDS: LEVEMIR SQ SCH (22:47)
[2016-08-31] VITALS: BP 132/78
[2016-08-31] MEDS: NS 1000ML 1,000 ML IV SCH ×4 (01:20→21:20)
[2016-08-31] MEDS ORDERED: LACTATED RINGERS 1,000 ML ONE (03:11)
[2016-08-31] MEDS: LACTATED RINGERS IV SCH ×3 (03:15→20:41)
[2016-08-31 04:00] VITALS: BP 132/73
--- NOTE | 2016-08-31 05:18 | NUR ---
patient has been more alert this shift , when asked a question well blink in response , patient making good eye contact this shift , urine is straw color with clearing urine , patient has had two loose stools this shift dark brown loose , joana cath care given antifungal cream applied oral care with lip care
[2016-08-31 06:03] LABS: CALCIUM 9.6 mg/dL (8.4-10.5); CARBON DIOXIDE 31.4 mmol/L (20.0-32)
[2016-08-31 06:37] LABS: BASOPHIL # 0.2 10^3/uL (0.0-0.1); BASOPHIL % 1.8 % (0.0-0.2); EOSINOPHIL # 0.8 10^3/uL (0.0-0.2); EOSINOPHIL % 8.9 % (0.0-5.0); HEMATOCRIT 32.9 % (36.0-46.0); HEMOGLOBIN 9.7 g/dL (12.0-15.0); LYMPHOCYTES # 1.8 10^3/uL (1.0-4.8); LYMPHOCYTES % 20.4 % (24.0-44.0); MEAN CELL HGB 27.9 pg (26-34); MEAN CELL HGB CONCENTRATION 29.5 g/dL (33-37); MEAN CORP VOLUME 94.5 fL (78-100); MONOCYTES # 0.6 10^3/uL (0.3-0.8); MONOCYTES % 6.7 % (5.0-12.0); NEUTROPHIL # 5.5 10^3/uL (1.8-7.7); NEUTROPHILS % 62.2 % (41.0-85.0); RED CELL DISTRIBUTION WIDTH 17.2 % (11.5-14.5); WHITE BLOOD CELL 8.8 10^3/uL (4.5-11.0)
[2016-08-31] MEDS: ZOFRAN ODT PEG SCH ×3 (07:13→21:45)
[2016-08-31 07:55] VITALS: BP 136/77
[2016-08-31] MEDS: HUMULIN R SQ SCH ×3 (08:00→18:00)
[2016-08-31] MEDS: ACCU-CHEK MC SCH ×3 (08:00→18:00)
--- NOTE | 2016-08-31 08:30 | NUR ---
INCONTINENT WATERY CONSISTENCY STOOL NOTED, PT CLEANED AND TURNED AT THIS TIME.
[2016-08-31] MEDS: LOPRESSER PEG SCH (09:01)
[2016-08-31] MEDS: NORVASC PEG SCH (09:01)
[2016-08-31] MEDS: ASPIRIN PEG SCH (09:01)
--- NOTE | 2016-08-31 09:14 | PRM.CONS ---
Consultation Reason for Consult: Reason for Consultation: Pressure sores Objective Vitals and I/O Vital Sign - Last 24 Hours 08/30/16 08/30/16 08/30/16 08/30/16 13:02 16:55 18:56 18:59 Temp 98.5 97.4 Pulse 87 83 80 Resp 18 18 18 18 B/P (MAP) 128/80 (96) 134/81 (98) Pulse Ox 99 100 100 100 O2 Delivery Nasal Cannula O2 Flow Rate 2.00 FiO2 28 08/30/16 08/30/16 08/30/16 08/31/16 20:12 20:13 23:24 00:00 Temp 99.0 98.8 Pulse 54 80 82 Resp 18 18 16 B/P (MAP) 128/77 (94) 132/78 (96) Pulse Ox 100 100 100 O2 Delivery Nasal Canula Nasal Cannula Nasal Cannula Nasal Canula O2 Flow Rate 2.00 2.00 FiO2 08/31/16 08/31/16 08/31/16 08/31/16 04:00 07:55 08:59 09:01 Temp 100.3 98.6 Pulse 76 77 77 77 Resp 18 16 16 B/P (MAP) 132/73 (92) 136/77 (96) 136/77 Pulse Ox 100 100 98 O2 Delivery Nasal Canula Nasal Cannula O2 Flow Rate 2.00 FiO2 08/31/16 09:01 Pulse 77 B/P (MAP) 136/77 Intake and Output 08/30/16 08/30/16 08/31/16 15:00 23:00 07:00 Intake Total 636 ml Output Total 700 ml 1200 ml Balance -700 ml -564 ml General: No acute distress, Other (Patient is unable to talk) HEENT: Mucous membr. moist/pink Neck: Supple Lungs: Normal air movement Heart: Regular rate Abdomen: Normal bowel sounds, Soft Extremities: Other (Contractures of lower extrmeities. Heals are clean and have no wounds. There are superficial wounds in both groins. Clean. Dressings being changed regularly. ) Psych/Mental Status: Other (Unable to talk) Other physical findings Patient is incontinent of feces. There was stool in the bed. In the sacral area there is a small superficial pressure sore. About 5 x 5 cm in size. [place]. No necrotic tissue is present in the wound. Dressings being changed regularly. Procedures None All Results(Lab/Rad) K Medication Reconciliation Scheduled Amlodipine Besylate (Amlodipine Besylate), 5 MG PEG DAILY, (Reported) Aspirin (Aspir 81), 81 MG PEG DAILY, (Reported) Blood Sugar Diagnostic (Blood Glucose Test), 1 EACH MC BID, (Reported) Fluconazole (Fluconazole), 100 MG PEG DAILY, (Reported) Insulin Glargine,Hum.rec.anlog (Lantus Solostar), 8 UNIT SQ HS, (Reported) Levofloxacin (Levaquin), 500 MG PO DAILY, (Reported) Metoprolol Tartrate 25MG (Lopresser 25MG), 25 MG PEG DAILY, (Reported) Ondansetron (Zofran Odt), 4 MG PEG Q8, (Reported) Scheduled PRN Acetaminophen (Acetaminophen), 500 MG PEG Q6 PRN for PAIN, (Reported) Subjective Subjective Patient History: No known health problems Events Since Last Encounter Surgery consultation was requested by Dr. Lovell for patient with pressure sores. The patient is bed ridden due to multiple comorbidities. She has a wound on the lower back and both groin areas. She is admitted for work up of sepsis and possible UTI. Patient is unable to talk. VTE VTE Risk assessment K VTE Risk Total Score: 2 VTE Risk Score VTE Risk: Score 0-1 = Low Risk (Aggressive mobilization; early ambulation; no VTE prophylaxis required) Score 2: Moderate Risk (Intermittent/Pneumatic Compression Device OR Lovenox/Heparin/Coumadin) Score 3-4: High Risk (Intermittent/Pneumatic Compression Device AND Lovenox/Heparin/Coumadin) Score > or =5: Highest Risk (Intermittent/Pneumatic Compression Device AND Lovenox/Heparin/Coumadin) Antico:Hep/LMWH/Coum/Xarelto: No Mechanical device ordered: No Plan Assessment Pressure sores and non-healing wounds on the lower back and both groins. Plan Continue regular dressing changes. No surgical intervention needed. Problems, incl. Pt HX: ROMANA SIERRA MD Aug 31, 2016 09:14
--- NOTE | 2016-08-31 11:00 | NUR ---
INCONTINENT GREEN WATERY DIARRHEA NOTED AT THIS TIME, PT CLEANED, LINENS CHANGED AND REPOSITIONED.
--- NOTE | 2016-08-31 11:08 | PRM.PN ---
Subjective Subjective Subjective patient was seen and examined. Hemodynamically stable. Afebrile. Surgical consultation appreciated, no need for intervention lab results reviewed patient is noncommunicable with aphasia Patient History: No known health problems VTE VTE Risk Total Score: 2 VTE Risk Score VTE Risk: Score 0-1 = Low Risk (Aggressive mobilization; early ambulation; no VTE prophylaxis required) Score 2: Moderate Risk (Intermittent/Pneumatic Compression Device OR Lovenox/Heparin/Coumadin) Score 3-4: High Risk (Intermittent/Pneumatic Compression Device AND Lovenox/Heparin/Coumadin) Score > or =5: Highest Risk (Intermittent/Pneumatic Compression Device AND Lovenox/Heparin/Coumadin) Antico:Hep/LMWH/Coum/Xarelto: No Mechanical device ordered: No Review of Systems Allergies: Coded Allergies: No Known Allergies (Unverified , 08/12/16) Scheduled Amlodipine Besylate (Amlodipine Besylate), 5 MG PEG DAILY, (Reported) Aspirin (Aspir 81), 81 MG PEG DAILY, (Reported) Blood Sugar Diagnostic (Blood Glucose Test), 1 EACH MC BID, (Reported) Fluconazole (Fluconazole), 100 MG PEG DAILY, (Reported) Insulin Glargine,Hum.rec.anlog (Lantus Solostar), 8 UNIT SQ HS, (Reported) Levofloxacin (Levaquin), 500 MG PO DAILY, (Reported) Metoprolol Tartrate 25MG (Lopresser 25MG), 25 MG PEG DAILY, (Reported) Ondansetron (Zofran Odt), 4 MG PEG Q8, (Reported) Scheduled PRN Acetaminophen (Acetaminophen), 500 MG PEG Q6 PRN for PAIN, (Reported) Objective Vitals and I/O Vital Sign - Last 24 Hours 08/30/16 08/30/16 08/30/16 08/30/16 13:02 16:55 18:56 18:59 Temp 98.5 97.4 Pulse 87 83 80 Resp 18 18 18 18 B/P (MAP) 128/80 (96) 134/81 (98) Pulse Ox 99 100 100 100 O2 Delivery Nasal Cannula O2 Flow Rate 2.00 FiO2 28 08/30/16 08/30/16 08/30/16 08/31/16 20:12 20:13 23:24 00:00 Temp 99.0 98.8 Pulse 54 80 82 Resp 18 18 16 B/P (MAP) 128/77 (94) 132/78 (96) Pulse Ox 100 100 100 O2 Delivery Nasal Canula Nasal Cannula Nasal Cannula Nasal Canula O2 Flow Rate 2.00 2.00 FiO2 28 08/31/16 08/31/16 08/31/16 08/31/16 04:00 07:55 08:59 09:01 Temp 100.3 98.6 Pulse 76 77 77 77 Resp 18 16 16 B/P (MAP) 132/73 (92) 136/77 (96) 136/77 Pulse Ox 100 100 98 O2 Delivery Nasal Canula Nasal Cannula O2 Flow Rate 2.00 FiO2 28 08/31/16 08/31/16 09:01 09:49 Pulse 77 B/P (MAP) 136/77 O2 Delivery Nasal Cannula O2 Flow Rate 2.00 Intake and Output 08/30/16 08/30/16 08/31/16 15:00 23:00 07:00 Intake Total 636 ml Output Total 700 ml 1200 ml Balance -700 ml -564 ml General: Alert Neck: Supple Lungs: Clear to auscultation ( fine rhonchi) Heart: Regular rate Abdomen: Normal bowel sounds ( take feeding tube) Extremities: No clubbing Medication Reconciliation Scheduled Amlodipine Besylate (Amlodipine Besylate), 5 MG PEG DAILY, (Reported) Aspirin (Aspir 81), 81 MG PEG DAILY, (Reported) Blood Sugar Diagnostic (Blood Glucose Test), 1 EACH MC BID, (Reported) Fluconazole (Fluconazole), 100 MG PEG DAILY, (Reported) Insulin Glargine,Hum.rec.anlog (Lantus Solostar), 8 UNIT SQ HS, (Reported) Levofloxacin (Levaquin), 500 MG PO DAILY, (Reported) Metoprolol Tartrate 25MG (Lopresser 25MG), 25 MG PEG DAILY, (Reported) Ondansetron (Zofran Odt), 4 MG PEG Q8, (Reported) Scheduled PRN Acetaminophen (Acetaminophen), 500 MG PEG Q6 PRN for PAIN, (Reported) Assessment/Plan Assessment/Plan Assessment/Plan - Gram-positive cocci bacteremia likely UTI - sepsis without shock with elevated lactic acid levels - check echocardiogram - IV antibiotics - nursing care, PEG feeding Problems: Patient History: No known health problems PIEDAD ANDREW MD Aug 31, 2016 11:08
--- NOTE | 2016-08-31 11:53 | NUR ---
status DR ANDREW NOTIFIED OF HYPERACTIVE BOWEL SOUNDS, DISTENTION AND DIARRHEA NO NEW ORDERS RECEIVED AT THIS TIME.
[2016-08-31] MEDS: VANCOMYCIN HCL 1 GM in NS 250ML 250 ML IV SCH ×2 (12:57→20:41)
[2016-08-31] MEDS: LOVENOX SQ SCH (12:57)
[2016-08-31] MEDS: ROCEPHIN 1,000 MG in NS 100ML 100 ML IV SCH (13:05)
[2016-08-31 13:32] LABS: BILIRUBIN,URINE NEGATIVE (NEGATIVE); UROBILINOGEN,URINE NORMAL (NEGATIVE)
[2016-08-31 13:35] LABS: APPEARANCE,URINE CLOUDY (CLEAR); UA COLOR YELLOW (YELLOW)
[2016-08-31 13:39] VITALS: BP 139/76
--- NOTE | 2016-08-31 14:55 | NUR ---
Speech Eval completed: Patient able to use eye gaze on yes/no cards for communication of simple information re: self and immediate environment on 08/03 attempts. Recommend use of written yes/no for communication attempts with staff and caregivers. Signed: 08/31/16 at 1458 by Maxine Mcdonald MS,[facility] [employer]
--- NOTE | 2016-08-31 18:35 | NUR ---
REPORT REPORT RECEIVED FROM [facility] ASSUMED CARE OF PT
[2016-08-31 19:02] VITALS: BP 130/74
[2016-08-31] MEDS: LEVEMIR SQ SCH (20:43)
[2016-09-01 01:03] VITALS: BP 134/70
[2016-09-01] MEDS: NS 1000ML 1,000 ML IV SCH (04:00)
[2016-09-01] MEDS: VANCOMYCIN HCL 1 GM in NS 250ML 250 ML IV SCH ×3 (04:38→18:07)
[2016-09-01] MEDS: ZOFRAN ODT PEG SCH ×3 (05:41→21:52)
[2016-09-01 06:20] LABS: BASOPHIL # 0.1 10^3/uL (0.0-0.1); EOSINOPHIL # 0.7 10^3/uL (0.0-0.2); EOSINOPHIL % 7.5 % (0.0-5.0); HEMATOCRIT 32.1 % (36.0-46.0); HEMOGLOBIN 9.6 g/dL (12.0-15.0); LYMPHOCYTES # 1.4 10^3/uL (1.0-4.8); LYMPHOCYTES % 15.3 % (24.0-44.0); MEAN CELL HGB 27.6 pg (26-34); MEAN CELL HGB CONCENTRATION 29.9 g/dL (33-37); MEAN CORP VOLUME 92.2 fL (78-100); MONOCYTES # 0.7 10^3/uL (0.3-0.8); MONOCYTES % 7.7 % (5.0-12.0); NEUTROPHIL # 6.1 10^3/uL (1.8-7.7); NEUTROPHILS % 68.4 % (41.0-85.0); RED CELL DISTRIBUTION WIDTH 16.5 % (11.5-14.5)
[2016-09-01 07:00] LABS: CALCIUM 9.8 mg/dL (8.4-10.5); CARBON DIOXIDE 30.1 mmol/L (20.0-32)
[2016-09-01] MEDS: ACCU-CHEK MC SCH ×3 (07:56→18:00)
[2016-09-01] MEDS: HUMULIN R SQ SCH ×3 (07:56→18:00)
--- NOTE | 2016-09-01 08:00 | PRM.PN ---
Progress Note Subjective Date: Sep 01, 2016 Time: 07:57 Physician Notes: Patient with wounds on the lower back and both groins. Objective Review IO, Exams,& Results Dressings being changed regularly. Acute/Active Problems: (1) Urinary tract infection Vital Signs Date Time Temp Pulse Resp B/P (MAP) Pulse Ox O2 Delivery O2 Flow Rate FiO2 09/01/16 07:40 Nasal Cannula 2.00 09/01/16 01:03 98.8 64 18 134/70 (91) 100 08/31/16 08:59 28 Intake and Output 09/01/16 07:00 Intake Total 1393 ml Output Total 2800 ml Balance -1407 ml Tube Feeding 1393 ml Output Urine Total 2800 ml # Bowel Movements 4 Laboratory Tests Test 08/30/16 14:02 08/30/16 17:55 08/31/16 05:30 08/31/16 11:08 Blood Gas Sample Site Rt bracial artery Left brachial artry Blood Gas pH 7.435 Blood Gas PCO2 44.9 mmHg Blood Gas PO2 125.6 mmHg Blood Gas HCO3 29.5 mmol/L Blood Gas Base Excess 4.6 mmol/L Tej Test N/a N/a Arterial Blood Oxygen Saturation 98.2 % Deoxyhemoglobin 1.8 % Carboxyhemoglobin 0.2 % Methemoglobin 0.0 % Total Hemoglobin 13.1 % Total Oxygen Concentration 18.2 % Lactic Acid (Blood Gas) 2.2 MMOL/L 2.1 MMOL/L Blood Gas Temperature 37 37 Oxygen Delivery Method (LAB) Nasal cannula FiO2 28.0 % Bicarbonate 30.8 mmol/L White Blood Count 8.8 10^3/uL Red Blood Count 3.48 10^6/uL Hemoglobin 9.7 g/dL Hematocrit 32.9 % Mean Corpuscular Volume 94.5 fL Mean Corpuscular Hemoglobin 27.9 pg Mean Corpuscular Hemoglobin Concent 29.5 g/dL Red Cell Distribution Width 17.2 % Platelet Count 316 10^3/uL Mean Platelet Volume 10.0 fL Neutrophils (%) (Auto) 62.2 % Lymphocytes (%) (Auto) 20.4 % Monocytes (%) (Auto) 6.7 % Neutrophils # (Auto) 5.5 10^3/uL Lymphocytes # (Auto) 1.8 10^3/uL Monocytes # (Auto) 0.6 10^3/uL Absolute Immature Granulocyte (auto 0 10^3 u/L Eosinophils % 8.9 % Basophils % 1.8 % Basophils # 0.2 10^3/uL Eosinophil Count 0.8 10^3/uL Sodium Level 157 mmol/L Potassium Level 3.7 mmol/L Chloride Level 118.0 mmol/L Carbon Dioxide Level 31.4 mmol/L Glucose Level 163 mg/dL Blood Urea Nitrogen 24 mg/dL Creatinine 0.60 mg/dL Calcium Level 9.6 mg/dL Anion Gap 11.3 Estimated GFR () 123.0 BUN/Creatinine Ratio 40.0 Percent Immature Gran (Cell Imm) 0.00 % Urine Collection Type Void Urine Color Yellow Urine Appearance Cloudy Urine Bilirubin Negative MG/DL Urine Ketones Negative Urine Specific [place] 1.020 Urine pH 9 Urine Protein Negative Urine Urobilinogen Normal Urine Nitrate Negative Urine Leukocyte Esterase 100/ul 1+ Urine Blood 50 2+ Urine RBC 2-5 RBC/HPF Urine WBC 5-10 WBC/HPF Urine Amorphous Sediment Moderate Urine Bacteria Many Urine Glucose Normal Test 09/01/16 05:30 White Blood Count 9.0 10^3/uL Red Blood Count 3.48 10^6/uL Hemoglobin 9.6 g/dL Hematocrit 32.1 % Mean Corpuscular Volume 92.2 fL Mean Corpuscular Hemoglobin 27.6 pg Mean Corpuscular Hemoglobin Concent 29.9 g/dL Red Cell Distribution Width 16.5 % Platelet Count 314 10^3/uL Mean Platelet Volume 11.0 fL Neutrophils (%) (Auto) 68.4 % Lymphocytes (%) (Auto) 15.3 % Monocytes (%) (Auto) 7.7 % Neutrophils # (Auto) 6.1 10^3/uL Lymphocytes # (Auto) 1.4 10^3/uL Monocytes # (Auto) 0.7 10^3/uL Absolute Immature Granulocyte (auto 0.01 10^3 u/L Eosinophils % 7.5 % Basophils % 1.0 % Basophils # 0.1 10^3/uL Eosinophil Count 0.7 10^3/uL Sodium Level 151 mmol/L Potassium Level 3.9 mmol/L Chloride Level 111.0 mmol/L Carbon Dioxide Level 30.1 mmol/L Glucose Level 132 mg/dL Blood Urea Nitrogen 20 mg/dL Creatinine 0.48 mg/dL Calcium Level 9.8 mg/dL Anion Gap 13.8 Estimated GFR () 159.1 BUN/Creatinine Ratio 41.0 Pro-B-Type Natriuretic Peptide 598 pg/mL Percent Immature Gran (Cell Imm) 0.10 % Current Medications Medications (Trade) Dose Ordered Sig/Rocio PRN Reason Start Time Stop Time Status Last Admin Amlodipine Besylate (Norvasc) 5 mg DAILY 08/31/16 09:00 09/30/16 08:59 08/31/16 09:01 Aspirin (Aspirin) 81 mg DAILY 08/31/16 09:00 09/30/16 08:59 08/31/16 09:01 Ceftriaxone Sodium 1000 mg/ Sodium Chloride 100 ml @ 100 mls/hr Q24HRS 08/29/16 14:00 09/28/16 13:59 08/31/16 13:05 Enoxaparin Sodium (Lovenox) 40 mg Q24HRS 08/30/16 12:00 09/29/16 11:59 08/31/16 12:57 Insulin Detemir (Levemir) 8 unit HS 08/30/16 21:00 09/29/16 20:59 08/31/16 20:43 Insulin Human Regular (Humulin R) TIDM 08/30/16 12:08 09/29/16 11:59 Lactated Ringer's 1,989 ml @ 150 mls/hr 1730 08/30/16 17:30 09/29/16 17:29 08/31/16 20:41 Metoprolol Tartrate (Lopresser) 25 mg DAILY 08/31/16 09:00 09/30/16 08:59 08/31/16 09:01 Miscellaneous Medication (Accu-Chek) 1 each TIDM 08/30/16 21:00 09/29/16 20:59 09/01/16 07:56 Ondansetron HCl (Zofran Odt) 4 mg Q8 08/30/16 14:00 09/29/16 13:59 09/01/16 05:41 Sodium Chloride 1,000 ml @ 150 mls/hr Q6H40M 08/30/16 12:00 09/29/16 11:59 08/30/16 12:08 Vancomycin HCl 1 gm/Sodium Chloride 250 ml @ 175 mls/hr Q8H 08/31/16 12:00 09/30/16 11:59 09/01/16 04:38 Heart: Regular rate Abdomen: Normal bowel sounds ( take feeding tube), Soft Lungs: Clear to auscultation ( fine rhonchi), Normal air movement Skin: Other (Superficial pressure sores on the lower back and both groins. Clean) Assessment & Plan: Assessment Stable Plan No surgical intervention needed. Will follow as needed. ROMANA SIERRA MD Sep 01, 2016 08:00
[2016-09-01] MEDS: ASPIRIN PEG SCH (08:02)
[2016-09-01] MEDS: NORVASC PEG SCH (08:02)
[2016-09-01] MEDS: LOPRESSER PEG SCH (08:02)
[2016-09-01 08:32] VITALS: BP 135/75
--- NOTE | 2016-09-01 11:11 | PRM.PN ---
Subjective Subjective Subjective Seen and examined. Jorden at bedside. Patient looks better, hemoglobin is stable. Still nonverbal afebrile Results reviewed medications reviewed Patient History: No known health problems VTE VTE Risk Total Score: 2 VTE Risk Score VTE Risk: Score 0-1 = Low Risk (Aggressive mobilization; early ambulation; no VTE prophylaxis required) Score 2: Moderate Risk (Intermittent/Pneumatic Compression Device OR Lovenox/Heparin/Coumadin) Score 3-4: High Risk (Intermittent/Pneumatic Compression Device AND Lovenox/Heparin/Coumadin) Score > or =5: Highest Risk (Intermittent/Pneumatic Compression Device AND Lovenox/Heparin/Coumadin) Antico:Hep/LMWH/Coum/Xarelto: No Mechanical device ordered: No Review of Systems Allergies: Coded Allergies: No Known Allergies (Unverified , 08/12/16) Scheduled Amlodipine Besylate (Amlodipine Besylate), 5 MG PEG DAILY, (Reported) Aspirin (Aspir 81), 81 MG PEG DAILY, (Reported) Blood Sugar Diagnostic (Blood Glucose Test), 1 EACH MC BID, (Reported) Fluconazole (Fluconazole), 100 MG PEG DAILY, (Reported) Insulin Glargine,Hum.rec.anlog (Lantus Solostar), 8 UNIT SQ HS, (Reported) Levofloxacin (Levaquin), 500 MG PO DAILY, (Reported) Metoprolol Tartrate 25MG (Lopresser 25MG), 25 MG PEG DAILY, (Reported) Ondansetron (Zofran Odt), 4 MG PEG Q8, (Reported) Scheduled PRN Acetaminophen (Acetaminophen), 500 MG PEG Q6 PRN for PAIN, (Reported) Objective Vitals and I/O Vital Sign - Last 24 Hours 08/31/16 08/31/16 08/31/16 08/31/16 13:39 19:02 19:02 21:19 Temp 98.7 98.9 Pulse 66 72 66 Resp 16 16 16 B/P (MAP) 139/76 (97) 130/74 (92) Pulse Ox 100 100 100 O2 Delivery Nasal Canula Nasal Cannula Nasal Canula Nasal Cannula O2 Flow Rate 2.00 2.00 09/01/16 09/01/16 09/01/16 09/01/16 01:03 07:40 08:02 08:02 Temp 98.8 Pulse 64 64 64 Resp 18 B/P (MAP) 134/70 (91) 134/70 134/70 Pulse Ox 100 O2 Delivery Nasal Canula Nasal Cannula O2 Flow Rate 2.00 09/01/16 09/01/16 08:32 08:43 Temp 98.2 Pulse 69 64 Resp 18 18 B/P (MAP) 135/75 (95) Pulse Ox 100 97 O2 Delivery Nasal Canula Nasal Cannula O2 Flow Rate 2.00 FiO2 28 Intake and Output 08/31/16 08/31/16 09/01/16 15:00 23:00 07:00 Intake Total 755 ml 638 ml Output Total 2100 ml 700 ml Balance -1345 ml -62 ml General: Alert HEENT: Atraumatic Neck: Supple Lungs: Clear to auscultation Heart: Regular rate Abdomen: Normal bowel sounds, No tenderness Medication Reconciliation Scheduled Amlodipine Besylate (Amlodipine Besylate), 5 MG PEG DAILY, (Reported) Aspirin (Aspir 81), 81 MG PEG DAILY, (Reported) Blood Sugar Diagnostic (Blood Glucose Test), 1 EACH MC BID, (Reported) Fluconazole (Fluconazole), 100 MG PEG DAILY, (Reported) Insulin Glargine,Hum.rec.anlog (Lantus Solostar), 8 UNIT SQ HS, (Reported) Levofloxacin (Levaquin), 500 MG PO DAILY, (Reported) Metoprolol Tartrate 25MG (Lopresser 25MG), 25 MG PEG DAILY, (Reported) Ondansetron (Zofran Odt), 4 MG PEG Q8, (Reported) Scheduled PRN Acetaminophen (Acetaminophen), 500 MG PEG Q6 PRN for PAIN, (Reported) Assessment/Plan Assessment/Plan Assessment/Plan - IV antibiotics - nursing care - redo blood cultures - tube feeding Problems: Patient History: No known health problems PIEDAD ANDREW MD Sep 01, 2016 11:10
--- NOTE | 2016-09-01 12:06 | NUR ---
REPORTED TO KANA IN PHARMACY THAT VANCO TROUGH IS 25.4. PHARMACY WILL REFIGURE DOSAGE FOR PT.
[2016-09-01] MEDS: LOVENOX SQ SCH (12:13)
[2016-09-01] MEDS: ROCEPHIN 1,000 MG in NS 100ML 100 ML IV SCH (13:15)
[2016-09-01 14:32] VITALS: BP 126/78
[2016-09-01] MEDS ORDERED: IMODIUM PEG PRN (15:30)
--- NOTE | 2016-09-01 18:39 | NUR ---
report received report from offgoing shift
--- NOTE | 2016-09-01 19:02 | NUR ---
vanc trough vanc trough result is 19.5 Doctor notified and new order received to hold 1800 dose.
[2016-09-01 20:00] VITALS: BP 132/64
[2016-09-01] MEDS: LEVEMIR SQ SCH (20:16)
[2016-09-01] MEDS: LACTATED RINGERS IV SCH (20:21)
--- NOTE | 2016-09-01 21:50 | NUR ---
PEG TUBE peg tube flushed with water to ensure patency.
--- NOTE | 2016-09-01 23:02 | NUR ---
dressing dressing place on sacral area to prevent further skin breakdown.
[2016-09-02 00:15] VITALS: BP 125/72
[2016-09-02 04:21] VITALS: BP 137/83
[2016-09-02] MEDS: ZOFRAN ODT PEG SCH ×3 (05:34→22:36)
[2016-09-02] MEDS: LACTATED RINGERS IV SCH ×2 (05:35→18:02)
[2016-09-02 05:45] LABS: BASOPHIL # 0.1 10^3/uL (0.0-0.1); BASOPHIL % 1.6 % (0.0-0.2); EOSINOPHIL # 0.5 10^3/uL (0.0-0.2); HEMATOCRIT 33.5 % (36.0-46.0); HEMOGLOBIN 10.4 g/dL (12.0-15.0); LYMPHOCYTES # 1.4 10^3/uL (1.0-4.8); MEAN CELL HGB 27.7 pg (26-34); MEAN CORP VOLUME 89.3 fL (78-100); MEAN PLATELET VOLUME 10.9 fL (7.8-11.0); MONOCYTES # 0.7 10^3/uL (0.3-0.8); NEUTROPHIL # 4.5 10^3/uL (1.8-7.7); NEUTROPHILS % 62.3 % (41.0-85.0); WHITE BLOOD CELL 7.3 10^3/uL (4.5-11.0)
[2016-09-02 06:45] LABS: CALCIUM 9.6 mg/dL (8.4-10.5); CARBON DIOXIDE 28.1 mmol/L (20.0-32)
--- NOTE | 2016-09-02 07:03 | NUR ---
REPORT REPORT RECEIVED FROM PREVIOUS SHIFT AND ASSUMED CARE OF PT
[2016-09-02] MEDS: VANCOMYCIN HCL 1 GM in NS 250ML 250 ML IV SCH ×2 (07:31→18:06)
--- NOTE | 2016-09-02 07:49 | NUR ---
ASSESSMENT ASSESSMENT COMPLETE AT THIS TIME. PT LAYING DOWN IN BED. NO S/S OF PAIN OR DISCOMFORT. PEG FLUSHED AT THIS TIME. FLUSHED WITHOUT DIFFICULTY. PT TOLERATED WELL. LUNGS CTA. RESPIRATIONS EVEN AND NONLABORED. O2 IN PLACE PER ORDERS. NO SOB NOTED. ABD SOFT AND DISTENDED. BOWEL SOUNDS HYPERACTIVE X4. FLEX SEAL IN PLACE. LIQUID BROWN STOOL NOTED. PÉREZ CATH PATENT AND FLOWING TO GRAVITY. NO SWELLING NOTED TO BLE. RADIAL AND PEDAL PULSES PRESENT AND WNL. ALL NEEDS MET. CALL LIGHT WITHIN REACH.
[2016-09-02] MEDS: ACCU-CHEK MC SCH ×3 (08:00→18:03)
--- NOTE | 2016-09-02 08:57 | PRM.PN ---
Subjective Subjective Subjective patient seen and examined. Stable. Afebrile. Vital signs stable. Lab results reviewed and are stable as well Patient History: No known health problems VTE VTE Risk Total Score: 2 VTE Risk Score VTE Risk: Score 0-1 = Low Risk (Aggressive mobilization; early ambulation; no VTE prophylaxis required) Score 2: Moderate Risk (Intermittent/Pneumatic Compression Device OR Lovenox/Heparin/Coumadin) Score 3-4: High Risk (Intermittent/Pneumatic Compression Device AND Lovenox/Heparin/Coumadin) Score > or =5: Highest Risk (Intermittent/Pneumatic Compression Device AND Lovenox/Heparin/Coumadin) Antico:Hep/LMWH/Coum/Xarelto: No Mechanical device ordered: No Review of Systems Allergies: Coded Allergies: No Known Allergies (Unverified , 08/12/16) Scheduled Amlodipine Besylate (Amlodipine Besylate), 5 MG PEG DAILY, (Reported) Aspirin (Aspir 81), 81 MG PEG DAILY, (Reported) Blood Sugar Diagnostic (Blood Glucose Test), 1 EACH MC BID, (Reported) Fluconazole (Fluconazole), 100 MG PEG DAILY, (Reported) Insulin Glargine,Hum.rec.anlog (Lantus Solostar), 8 UNIT SQ HS, (Reported) Levofloxacin (Levaquin), 500 MG PO DAILY, (Reported) Metoprolol Tartrate 25MG (Lopresser 25MG), 25 MG PEG DAILY, (Reported) Ondansetron (Zofran Odt), 4 MG PEG Q8, (Reported) Scheduled PRN Acetaminophen (Acetaminophen), 500 MG PEG Q6 PRN for PAIN, (Reported) Objective Vitals and I/O Vital Sign - Last 24 Hours 09/01/16 09/01/16 09/01/16 09/01/16 14:32 20:00 20:30 20:34 Temp 98.7 98.9 Pulse 72 76 74 Resp 18 16 12 B/P (MAP) 126/78 (94) 132/64 (86) Pulse Ox 100 100 99 O2 Delivery Nasal Canula Nasal Canula Nasal Cannula O2 Flow Rate 2.00 2.00 09/02/16 09/02/16 09/02/16 09/02/16 00:15 04:21 07:47 08:05 Temp 99.1 98.3 Pulse 76 79 76 Resp 18 18 16 B/P (MAP) 125/72 (89) 137/83 (101) Pulse Ox 99 97 99 O2 Delivery Nasal Cannula Nasal Cannula O2 Flow Rate 2.00 2.00 FiO2 28 Intake and Output 09/01/16 09/01/16 09/02/16 15:00 23:00 07:00 Intake Total 591 ml Output Total 1800 ml 400 ml Balance -1209 ml -400 ml General: Alert ( nonverbal) HEENT: Atraumatic Neck: Supple Lungs: Clear to auscultation Heart: Regular rate Abdomen: Normal bowel sounds Extremities: No clubbing (small sacral decubiti) Medication Reconciliation Scheduled Amlodipine Besylate (Amlodipine Besylate), 5 MG PEG DAILY, (Reported) Aspirin (Aspir 81), 81 MG PEG DAILY, (Reported) Blood Sugar Diagnostic (Blood Glucose Test), 1 EACH MC BID, (Reported) Fluconazole (Fluconazole), 100 MG PEG DAILY, (Reported) Insulin Glargine,Hum.rec.anlog (Lantus Solostar), 8 UNIT SQ HS, (Reported) Levofloxacin (Levaquin), 500 MG PO DAILY, (Reported) Metoprolol Tartrate 25MG (Lopresser 25MG), 25 MG PEG DAILY, (Reported) Ondansetron (Zofran Odt), 4 MG PEG Q8, (Reported) Scheduled PRN Acetaminophen (Acetaminophen), 500 MG PEG Q6 PRN for PAIN, (Reported) Assessment/Plan Assessment/Plan Assessment/Plan - gram-positive bacteremia - UTI - chronic encephalopathy - chronic diarrhea responding to Imodium. - C. difficile studies are negative Problems: Patient History: No known health problems PIEDAD ANDREW MD Sep 02, 2016 08:57
[2016-09-02] MEDS: ASPIRIN PEG SCH (09:15)
[2016-09-02] MEDS: LOPRESSER PEG SCH (09:19)
[2016-09-02] MEDS: NORVASC PEG SCH (09:19)
[2016-09-02] MEDS: HUMULIN R SQ SCH ×3 (09:30→18:00)
[2016-09-02 09:45] VITALS: BP 159/97
--- NOTE | 2016-09-02 11:44 | NUR ---
UPDATE TO [facility] CM FAXED PATIENTS UPDATED CLINICAL INFORMATION TO [facility]. 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 YUE STATED PATIENT IS "OKAY" TO DISCHARGE BACK TO FACILITY TOMORROW ONCE NURSING CALLS REPORT AND ARRANGES TRANSPORTATION. CM TO CONTINUE TO FOLLOW.
[2016-09-02 12:35] VITALS: BP 135/85
[2016-09-02] MEDS: LOVENOX SQ SCH (14:05)
[2016-09-02] MEDS: ROCEPHIN 1,000 MG in NS 100ML 100 ML IV SCH (14:07)
[2016-09-02 16:00] VITALS: BP 140/80
--- NOTE | 2016-09-02 18:25 | NUR ---
REPORT REPORT GIVEN TO ONCOMING SHIFT AND CARE RELINQUISHED
--- NOTE | 2016-09-02 18:51 | NUR ---
Report Received report from Rosetta Tristan LVN
[2016-09-02 20:05] VITALS: BP 148/82
[2016-09-02] MEDS: LEVEMIR SQ SCH (21:00)
[2016-09-03 00:38] VITALS: BP 128/70
[2016-09-03] MEDS: LACTATED RINGERS IV SCH (05:07)
[2016-09-03] MEDS: ZOFRAN ODT PEG SCH (05:07)
[2016-09-03] MEDS: VANCOMYCIN HCL 1 GM in NS 250ML 250 ML IV SCH (05:57)
[2016-09-03 06:25] VITALS: BP 129/67
--- NOTE | 2016-09-03 06:49 | NUR ---
Report Report given to Miguel Angel Lindsey RN
--- NOTE | 2016-09-03 06:50 | NUR ---
REPORT RECEIVED REPORT ON PT. THIS NURSE ASSUMED CARE.
--- NOTE | 2016-09-03 07:21 | PRM.DC ---
Discharge Summary Date of Arrival on Unit: Aug 29, 2016 Reason for Visit: Sepsis Additional Comments 61-year-old diabetic lady with pre-existing encephalopathy, she is nonverbal, halfway resident with PEG tube feeding, was transferred halfway for fever and leukocytosis my. Noted to have UTI with gram-positive cocci. Patient remained hemodynamically stable without signs of septic shock. Sliding scale was administered. Rocephin and vancomycin were given his antibiotics of choice. Blood cultures were negative. episodic nonbloody diarrhea was noted, feeding through PEG tube continued, C. difficile workup was negative. patient condition stabilized. Lab results normalized. She remained nonverbal and noncommunicating. Vital signs stabilized Second set of blood cultures were negative. sacral pressure sores/Decubeti noted, evaluated by Dr León (surgeon) and determined to require no intervention, Patient History: No known health problems History Present Illness: General: Alert ( nonverbal) Neck: Supple Lungs: Clear to auscultation ( fine rhonchi) Heart: Regular rate Abdomen: Normal bowel sounds, Other (small, stage 1 scaral decubeti) Extremities: No clubbing Scheduled Amlodipine Besylate (Amlodipine Besylate), 5 MG PEG DAILY, (Reported) Aspirin (Aspir 81), 81 MG PEG DAILY, (Reported) Blood Sugar Diagnostic (Blood Glucose Test), 1 EACH MC BID, (Reported) Fluconazole (Fluconazole), 100 MG PEG DAILY, (Reported) Insulin Glargine,Hum.rec.anlog (Lantus Solostar), 8 UNIT SQ HS, (Reported) Levofloxacin (Levaquin), 500 MG PO DAILY, (Reported) Metoprolol Tartrate 25MG (Lopresser 25MG), 25 MG PEG DAILY, (Reported) Ondansetron (Zofran Odt), 4 MG PEG Q8, (Reported) Scheduled PRN Acetaminophen (Acetaminophen), 500 MG PEG Q6 PRN for PAIN, (Reported) Course Blood Pressure Systolic: 129 Blood Pressure Diastolic: 67 Blood Pressure Mean: 87 Plan Assessment -G positive bacteremia -UTI -Recurrent diarrhea -stage 1 chronic sacral pressure sores -Encephalopathy, chronic -sacral decubeti -DM -HTN Discharge Disposition: Stable Plan -Patient be transferred back to [facility] - ciprofloxacin for 7 more days -pressure sore management and prevention - continue nursing care, home medication, diabetes treatment PIEDAD ANDREW MD Sep 03, 2016 07:21
[2016-09-03] MEDS: HUMULIN R SQ SCH ×2 (07:26→12:00)
[2016-09-03] MEDS: LOPRESSER PEG SCH (10:00)
[2016-09-03] MEDS: NORVASC PEG SCH (10:00)
[2016-09-03] MEDS: ASPIRIN PEG SCH (10:00)
[2016-09-03] MEDS: ACCU-CHEK MC SCH (10:00)
[2016-09-03 12:00] VITALS: BP 130/76
[2016-09-03] MEDS ORDERED: CIPR500T86 PO (12:32)
[2016-09-03 15:15] VITALS: BP 130/76
--- NOTE | 2016-09-03 15:15 | NUR ---
DISCHARGE DISCHARGE INSTRUCTIONS GIVEN TO PT'S SISTER AT THIS TIME. EMS CALLED FOR PICKUP BY CHARGE NURSE. REPORT CALLED INTO [facility] AT 1315. RECTAL TUBE WITH DISCONTINUED AT THIS TIME ALONG WITH IV. PT TO BE DISCONNECTED FROM [facility] WHEN EMS ARRIVES FOR TRANSPORT TO [facility].
--- NOTE | 2016-09-04 08:31 | ECHO ---
INDICATION: A 61-year old lady with bacteremia. Echocardiographic study was requested to evaluate any evidence of endocarditis, or valvular heart dysfunction, especially in the presence of MRSA bacteremia. - Study Quality was fair. -the underlying rhythm is_sinus rhythm. -The LV function was preserved with EF around 60%, mild LVH noted, no LVOT obstruction. No wall motion abnormality was seen. LV dimensions were normal. - RV size and EF were normal. -Mitral valve was suboptimally visualized due to poor acoustic windows. The valve has no major insufficiency, no visible stenosis seen. Cannot rule out the presence of masses or clots, although unlikely. The degree of mitral regurgitation is mild, unable to evaluate the diastolic parameters. - Aortic valve is mildly calcified, mild regurgitation noted. The Doppler examination was inaccurate to assess stenosis. The visible portion of the valve showed no visible masses or clots. - Tricuspid valve was poorly visualized. -No pericardial effusion. - Inferior vena cava was not well visualized. IMPRESSION: This is a suboptimal study for endocarditis. Nevertheless, no gross abnormality was noted. Overall ejection fraction is 60%. No pericardial effusion. No significant LV dysfunction. No other gross abnormality can be seen for this suboptimal study. Edmundo Lovell MD,FACC SONIDO/IDRIS TD: 09/03/2016 15:22 SRINIVASAN
== END 2016-09-03 15:50 | DRG 871 ==
LOC: EDBD 11:21 → ER 11:21 → MS 13:10 → UNDODISIN 15:33
PROVIDERS: ADMIT Internal Medicine; ATTEND Internal Medicine
DX: A41.9 Sepsis, unspecified organism (principal); G93.49 Other encephalopathy; N39.0 Urinary tract infection, site not specified; R47.01 Aphasia; E87.1 Hypo-osmolality and hyponatremia; G80.9 Cerebral palsy, unspecified; E11.9 Type 2 diabetes mellitus without complications; B96.89 Other specified bacterial agents as the cause of diseases classified elsewhere; L89.151 Pressure ulcer of sacral region, stage 1; I10 Essential (primary) hypertension; K52.9 Noninfective gastroenteritis and colitis, unspecified; Z74.01 Bed confinement status; Z93.1 Gastrostomy status; Z79.82 Long term (current) use of aspirin; Z79.899 Other long term (current) drug therapy
CPT/HCPCS: 36415; 36600; 71010; 80048; 80053; 80202; 81000; 82550; 82553; 82803; 82948; 83605; 83880; 84484; 85025; 87040; 87070; 87077; 87086; 87186; 92507; 92523; 93005; 93307; 99285; J0696; J1650; J1815; J7030; J7050; J7120; Q0162; A9270; G9162-CN; G9163-CL

== ENCOUNTER → 2016-09-04 | Outpatient (CLI) | payer OTHER ==
[~2016-09-04] MED LIST: ACET500T73 PEG; AMLO5TAB2 PEG; ASPI-484 PEG; CIPR500T86 PO; FLUC100T4 PEG; INSU100I13 SQ; LEVO500T34 PO; METO25TA4 PEG; ONDA4TAB10 PEG; [UNRECOGNIZED DRUG - CODE] MC
[2016-09-04 21:17] LABS: CALCIUM 9.8 mg/dL (8.4-10.5); CARBON DIOXIDE 27.2 mmol/L (20.0-32)
== END | disposition home or self-care (01) ==
LOC: LAB 18:47
PROVIDERS: ATTEND Family Medicine
DX: M62.81 Muscle weakness (generalized) (principal)
CPT/HCPCS: 80053

== ENCOUNTER 2016-09-10 15:22 | Emergency (ER) | payer OTHER ==
[~2016-09-10] VITALS: Ht 170.2 cm; Wt 56.7 kg
--- NOTE | 2016-09-10 15:53 | NUR ---
DR JAZ NGUYENA ON PHONE WITH DR SEBASTIAN
--- NOTE | 2016-09-10 15:54 | NUR ---
DR JAZ SEBASTIAN AT PT BEDSIDE WITH DR WELCH
--- NOTE | 2016-09-10 16:27 | NUR ---
DR JAZ SEBASTIAN CALLED TO TALK WITH DR WELCH
--- NOTE | 2016-09-10 16:32 | ER.PDOC ---
General Chief Complaint: General Complaint Stated Complaint: PEG TUBE CARE TRAVEL OUT OF US: No Time seen by MD: 16:31 Source: EMS, halfway records Exam Limitations: clinical condition History of Present Illness Initial Comments PEG tube displaced Timing/Duration: unsure Allergies: Coded Allergies: No Known Allergies (Unverified , 08/12/16) Home Meds Reported Medications Ciprofloxacin Hcl (CIPRO) 500 Mg Tablet, 1 TAB PO BID for 7 Days, #14 TAB 09/03/16 Blood Sugar Diagnostic (BLOOD GLUCOSE TEST) 1 Each Strip, 1 EACH MC BID, STRIP 08/30/16 Insulin Glargine,Hum.rec.anlog (LANTUS SOLOSTAR) 100 Unit/1 Ml Insuln.pen, 8 UNIT SQ HS 08/30/16 Fluconazole (FLUCONAZOLE) 100 Mg Tablet, 100 MG PEG DAILY, TABLET 08/30/16 Aspirin (ASPIR 81) 81 Mg Tablet.dr, 81 MG PEG DAILY 08/30/16 Amlodipine Besylate (AMLODIPINE BESYLATE) 5 Mg Tablet, 5 MG PEG DAILY, TABLET 08/30/16 Ondansetron (ZOFRAN ODT) 4 Mg Tab.rapdis, 4 MG PEG Q8, VIAL 08/30/16 Acetaminophen (ACETAMINOPHEN) 500 Mg Tablet, 500 MG PEG Q6 Y for PAIN, TABLET 08/30/16 Metoprolol Tartrate 25MG (LOPRESSER 25MG) 25 Mg Tablet, 25 MG PEG DAILY for HYPERTENSION, TAB 08/30/16 Levofloxacin (LEVAQUIN) 500 Mg Tablet, 500 MG PO DAILY, TABLET 08/30/16 Past Medical History Medical History: diabetes, hypertension Social History Smoking: non-smoker Alcohol Use: none Drug Use: none Review of Systems Constitutional: no symptoms reported Respiratory: no symptoms reported Cardiovascular: no symptoms reported Gastrointestinal: see HPI Genitourinary: no symptoms reported All Other Systems: Reviewed and Negative Physical Exam General Appearance: No Apparent Distress, WD/WN Neck: Non-Tender, Full Range of Motion Respiratory: chest non-tender, lungs clear, normal breath sounds CVS: reg rate & rhythm, no murmur, no gallop Gastrointestinal: Normal Bowel Sounds, No Organomegaly, No Pulsatile Mass, Tenderness (PEG tube in abdomen) Back: Normal Inspection, No CVA Tenderness Extremities: Normal Range of Motion, Non-Tender, Normal Inspection 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
--- NOTE | 2016-09-10 16:39 | DIREP ---
PROCEDURE:XRAY ABDOMEN SINGLE VW COMPARISON:None. INDICATIONS:PEG tube placement FINDINGS: BOWEL GAS PATTERN:PEG tube balloon and tip appear to be in the body of the stomach. Contrast injected through the tube is intraluminal within the stomach. There is no obvious extravasated contrast. There are no dilated bowel loops. CALCIFICATIONS:None significant. BONES:DJD of both hip joints. OTHER:No additional findings. CONCLUSION:PEG tube tip and balloon appear to be in the body of the stomach. Dictated by: Tony Ledesma M.D. on 09/10/2016 at 04:36 PM
--- NOTE | 2016-09-10 16:45 | NUR ---
DR JAZ NGUYENA ON PHONE WITH DR SEBASTIAN
--- NOTE | 2016-09-10 17:01 | NUR ---
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
[2016-09-10 18:12] VITALS: BP 112/73
== END 2016-09-10 18:10 | disposition home or self-care (01) ==
LOC: EDBD 15:22 → ER 15:22
DX: T85.528A Displacement of other gastrointestinal prosthetic devices, implants and grafts, initial encounter (principal); E11.9 Type 2 diabetes mellitus without complications; I10 Essential (primary) hypertension; Z79.4 Long term (current) use of insulin; Z79.82 Long term (current) use of aspirin; Z79.899 Other long term (current) drug therapy; Z93.1 Gastrostomy status; Y84.8 Other medical procedures as the cause of abnormal reaction of the patient, or of later complication, without mention of misadventure at the time of the procedure
CPT/HCPCS: 74000; 99283

== ENCOUNTER 2016-09-14 11:42 | Emergency (ER) | payer OTHER ==
[~2016-09-14] VITALS: Ht 167.6 cm; Wt 59.0 kg
--- NOTE | 2016-09-14 11:42 | NUR ---
ARRIVED PT ARRIVED VIA EMS FROM [facility]. PT IS NON VERBAL, UNABLE TO VERBALIZE PAIN BUT DOES NOT APPEAR TO HAVE PAIN WHEN PALPATING ABD. ABD IS DISTENDED AND FIRM BUT DO NOT KNOW PT NORMAL, DO NOT VISUALIZE ANY DISCHARGE FROM PEG TUBE SITE WHEN ABD IS PALPATED. PT IS AWAKE WATCHING ME WHEN I AM MOVING AROUND THE ROOM. TRIAGE DONE.
[2016-09-14 12:18] LABS: BASOPHIL # 0.1 10^3/uL (0.0-0.1); BASOPHIL % 0.5 % (0.0-0.2); EOSINOPHIL # 0.5 10^3/uL (0.0-0.2); EOSINOPHIL % 4.4 % (0.0-5.0); HEMATOCRIT 36.1 % (36.0-46.0); HEMOGLOBIN 10.7 g/dL (12.0-15.0); LYMPHOCYTES # 1.7 10^3/uL (1.0-4.8); LYMPHOCYTES % 14.8 % (24.0-44.0); MEAN CELL HGB 27.4 pg (26-34); MEAN CELL HGB CONCENTRATION 29.6 g/dL (33-37); MEAN CORP VOLUME 92.3 fL (78-100); MEAN PLATELET VOLUME 10.2 fL (7.8-11.0); MONOCYTES # 0.7 10^3/uL (0.3-0.8); MONOCYTES % 5.9 % (5.0-12.0); NEUTROPHIL # 8.7 10^3/uL (1.8-7.7); NEUTROPHILS % 74.1 % (41.0-85.0); RED CELL DISTRIBUTION WIDTH 16.7 % (11.5-14.5); WHITE BLOOD CELL 11.7 10^3/uL (4.5-11.0)
[2016-09-14 12:27] LABS: ABG PH 7.457 (7.350-7.450); BE(B) 5.3 mmol/L (-2.0-2.0); HCO3act 29.7 mmol/L (22.0-26.0); pO2 103.1 mmHg (75.0-100.0)
[2016-09-14 12:34] LABS: CALCIUM 10.2 mg/dL (8.4-10.5); CARBON DIOXIDE 30.4 mmol/L (20.0-32)
--- NOTE | 2016-09-14 12:45 | DIREP ---
PROCEDURE:CHEST 1 VIEW COMPARISON:[facility], CR, XRAY CHEST SINGLE VW, 08/29/2016, 10:57 AM. INDICATIONS:Fever FINDINGS: LUNGS/PLEURA:The left arm is seen overlying the left lower lobe. Minimal atelectasis in the lung bases. No airspace consolidation, CHF or effusions are seen. VASCULATURE:Normal. Unremarkable pulmonary vasculature. CARDIAC:Normal. No cardiac silhouette abnormality or cardiomegaly. MEDIASTINUM:Normal. No visible mass or adenopathy. BONES:Normal. No fracture or visible bony lesion. OTHER:Negative. CONCLUSION:Suspect bibasilar atelectasis and/or scarring. No pneumonia is seen. Dictated by: Daljit Cohen MD on 09/14/2016 at 12:43 PM
[2016-09-14] MEDS ORDERED: TYLENOL RC STA (13:19)
[2016-09-14] MEDS ORDERED: NS IV STA (13:19)
[2016-09-14] MEDS ORDERED: TYLENOL RC ONE (13:20)
[2016-09-14] MEDS ORDERED: NS 1000ML 1,000 ML ONE (13:20)
[2016-09-14] MEDS ORDERED: LACTATED RINGERS 1,000 ML ONE (13:21)
[2016-09-14] MEDS ORDERED: LACTATED RINGERS IV STA (13:21)
[2016-09-14 13:35] LABS: BILIRUBIN,URINE NEGATIVE (NEGATIVE); UROBILINOGEN,URINE NORMAL (NEGATIVE)
[2016-09-14 13:36] LABS: APPEARANCE,URINE CLEAR (CLEAR); UA COLOR YELLOW (YELLOW)
--- NOTE | 2016-09-14 13:37 | ER.PDOC ---
General Chief Complaint: Abdomen Pain Stated Complaint: PEG TUBE DISPLACED Time seen by MD: 13:33 Source: patient, [facility] records Exam Limitations: clinical condition History of Present Illness Initial Comments Abdominal distension and leaky PEG tube. Patient is aphasic Timing/Duration: 4-6 hours Allergies: Coded Allergies: No Known Allergies (Unverified , 08/12/16) Home Meds Reported Medications Ciprofloxacin Hcl (CIPRO) 500 Mg Tablet, 1 TAB PO BID for 7 Days, #14 TAB 09/03/16 Blood Sugar Diagnostic (BLOOD GLUCOSE TEST) 1 Each Strip, 1 EACH MC BID, STRIP 08/30/16 Insulin Glargine,Hum.rec.anlog (LANTUS SOLOSTAR) 100 Unit/1 Ml Insuln.pen, 8 UNIT SQ HS 08/30/16 Fluconazole (FLUCONAZOLE) 100 Mg Tablet, 100 MG PEG DAILY, TABLET 08/30/16 Aspirin (ASPIR 81) 81 Mg Tablet.dr, 81 MG PEG DAILY 08/30/16 Amlodipine Besylate (AMLODIPINE BESYLATE) 5 Mg Tablet, 5 MG PEG DAILY, TABLET 08/30/16 Ondansetron (ZOFRAN ODT) 4 Mg Tab.rapdis, 4 MG PEG Q8, VIAL 08/30/16 Acetaminophen (ACETAMINOPHEN) 500 Mg Tablet, 500 MG PEG Q6 Y for PAIN, TABLET 08/30/16 Metoprolol Tartrate 25MG (LOPRESSER 25MG) 25 Mg Tablet, 25 MG PEG DAILY for HYPERTENSION, TAB 08/30/16 Levofloxacin (LEVAQUIN) 500 Mg Tablet, 500 MG PO DAILY, TABLET 08/30/16 Vital Signs First Vital Signs Date Time Temp Pulse Resp B/P (MAP) Pulse Ox O2 Delivery O2 Flow Rate FiO2 09/03/16 10:00 78 09/14/16 11:43 100.2 18 99 09/14/16 11:50 119/60 (79) Last Vital Signs Date Time Temp Pulse Resp B/P (MAP) Pulse Ox O2 Delivery O2 Flow Rate FiO2 09/14/16 11:50 100.2 80 18 119/60 (79) 99 Past Medical History Medical History: diabetes Social History Smoking: non-smoker Alcohol Use: none Drug Use: none Constitutional: no symptoms reported Cardiovascular: no symptoms reported Gastrointestinal: see HPI Genitourinary: no symptoms reported Musculoskeletal: no symptoms reported All Other Systems: Reviewed and Negative Physical Exam General Appearance: No Apparent Distress Neck: Non-Tender Respiratory: chest non-tender, lungs clear, normal breath sounds, no respiratory distress, no accessory muscle use Cardiovascular: Normal Peripheral Pulses, Regular Rate, Rhythm, No Edema, No Gallop, No JVD, No Murmur Gastrointestinal: Normal Bowel Sounds, Other (PEG tube in place) Back: Normal Inspection Extremities: Normal Inspection Neurologic/Psychiatric: Aphasia Results/Orders Results/Orders Laboratory Tests Test 09/14/16 12:15 White Blood Count 11.7 10^3/uL (4.5-11.0) Red Blood Count 3.91 10^6/uL (4.00-5.20) Hemoglobin 10.7 g/dL (12.0-15.0) Hematocrit 36.1 % (36.0-46.0) Mean Corpuscular Volume 92.3 fL (78-100) Mean Corpuscular Hemoglobin 27.4 pg (26-34) Mean Corpuscular Hemoglobin Concent 29.6 g/dL (33-37) Red Cell Distribution Width 16.7 % (11.5-14.5) Platelet Count 390 10^3/uL (150-400) Mean Platelet Volume 10.2 fL (7.8-11.0) Neutrophils (%) (Auto) 74.1 % (41.0-85.0) Lymphocytes (%) (Auto) 14.8 % (24.0-44.0) Monocytes (%) (Auto) 5.9 % (5.0-12.0) Neutrophils # (Auto) 8.7 10^3/uL (1.8-7.7) Lymphocytes # (Auto) 1.7 10^3/uL (1.0-4.8) Monocytes # (Auto) 0.7 10^3/uL (0.3-0.8) Absolute Immature Granulocyte (auto 0.03 10^3 u/L (0-2) Eosinophils % 4.4 % (0.0-5.0) Basophils % 0.5 % (0.0-0.2) Basophils # 0.1 10^3/uL (0.0-0.1) Eosinophil Count 0.5 10^3/uL (0.0-0.2) Prothrombin Time 11.2 SEC (9.8-11.9) Prothromb Time International Ratio 1.1 Activated Partial Thromboplast Time 23.9 SEC (24.67-30.72) Blood Gas Sample Site Left radial artery Blood Gas pH 7.457 (7.350-7.450) Blood Gas PCO2 43.0 mmHg (35.0-45.0) Blood Gas PO2 103.1 mmHg (75.0-100.0) Blood Gas HCO3 29.7 mmol/L (22.0-26.0) Blood Gas Base Excess 5.3 mmol/L (-2.0-2.0) Tej Test N/a Arterial Blood Oxygen Saturation 97.6 % (95-) Deoxyhemoglobin 2.4 % (0.2-0.6) Carboxyhemoglobin 0.3 % (0.5-1.5) Methemoglobin 0.2 % (0.2-0.6) Total Hemoglobin 11.6 % (13.5-17.5) Total Oxygen Concentration 16.0 % (13.5-17.5) Lactic Acid (Blood Gas) 1.7 MMOL/L (0.5-1.0) Blood Gas Temperature 37 Oxygen Delivery Method (LAB) Nasal cannula FiO2 28 % (20-101) Sodium Level 151 mmol/L (132-145) Potassium Level 4.1 mmol/L (3.6-5.2) Chloride Level 111.0 mmol/L (96-109) Carbon Dioxide Level 30.4 mmol/L (20.0-32) Bicarbonate 31.0 mmol/L (23-27) Anion Gap 13.7 Blood Urea Nitrogen 30 mg/dL (7-18) Creatinine 0.78 mg/dL (0.59-1.40) Estimated GFR () 90.9 (>/=60) BUN/Creatinine Ratio 38.0 Glucose Level 170 mg/dL (70-110) Calcium Level 10.2 mg/dL (8.4-10.5) Total Bilirubin 0.3 mg/dL (0.2-1.0) Aspartate Amino Transf (AST/SGOT) 12 U/L (0-35) Alanine Aminotransferase (ALT/SGPT) 24 U/L (12-78) Alkaline Phosphatase 133 U/L (50-136) Total Protein 8.7 g/dL (6.4-8.2) Albumin 3.0 g/dL (3.4-5.0) Globulin 5.7 Lipase 126 U/L (114-286) Percent Immature Gran (Cell Imm) 0.30 % (0.00-0.50) Progress Progress Dr. León came and evaluated patient. He was not able to get a Mcguire Catheter in. He told me that patient will need a new PEG tube. EKG/XRAY/CT/US CT Comments: See CT report. Course Blood Pressure Systolic: 119 Blood Pressure Diastolic: 60 Blood Pressure Mean: 79 Departure Time of Disposition: 18:37 Disposition: 02 XFER SHT-TRM HOSP Impression: Primary Impression: Abdominal pain Additional Impressions: PEG tube malfunction UTI (urinary tract infection) Condition: Stable Referrals: KEESHA INFANTE (PCP) PRIMARY CARE PROVIDER Comments Transfer to [facility] ED for Dr. Jernigan Problem Qualifiers Primary Impression: Abdominal pain Abdominal location: unspecified location Qualified Codes: R10.9 - Unspecified abdominal pain Additional Impressions: UTI (urinary tract infection) Urinary tract infection type: site unspecified Hematuria presence: with hematuria Qualified Codes: N39.0 - Urinary tract infection, site not specified ; R31.9 - Hematuria, unspecified ELIZABETH WELCH MD Sep 14, 2016 13:37
[2016-09-14] MEDS ORDERED: ROCEPHIN 1,000 MG in NS 100ML 100 ML IV STA (15:21)
--- NOTE | 2016-09-14 16:10 | DIREP ---
PROCEDURE:CT ABDOMEN/PELVIS W/ CONTRAST COMPARISON:None. INDICATIONS:abdominal pain, possible displacement of PEG ttube TECHNIQUE:Axial images were created through the abdomen and pelvis with non-ionic intravenous contrast material. Oral contrast was administered. Sagittal and coronal reconstructions were performed from source images. The study was reviewed on abdominal, lung, liver and bone windows. FINDINGS: LUNG BASES:Bibasal opacities identified which may represent atelectasis and/or pneumonia. Mildly dilated ascending aorta. LIVER:Normal. No significant liver lesions are identified. Evaluation of the liver is compromised by streak like artifacts. BILIARY:Small calcified gallstones noted. PANCREAS:Normal. No lesion, fluid collection, ductal dilatation, or atrophy. SPLEEN:Normal. No enlargement or focal lesion. ADRENALS:Normal. No mass or enlargement. URINARY TRACT:Normal. No focal lesions or hydronephrosis. AORTA/VASCULAR:Normal. No aneurysm. RETROPERITONEUM:Normal. No mass or adenopathy. BOWEL/MESENTERY:The PEG tube is no longer within the bowel but appears to be within the subcutaneous fat. There is evidence for air within the subcutaneous fat of the left anterior abdominal wall. Recommend withdrawal and repositioning of the PEG Tube. ABDOMINAL WALL:Normal. No mass or hernia. PELVIC ORGANS:Normal. No visible mass. Pelvic organs appropriate for patient age. Mcguire catheter within the bladder. BONES:Normal for age. No bony lesion or acute fracture. OTHER:Negative. CONCLUSION:The PEG tube is no longer within the bowel but is in the subcutaneous fat with subcutaneous emphysema identified in the left anterior abdominal wall. Recommend withdrawal and repositioning. Bibasal opacities, question atelectasis and/or pneumonia. Multiple small calcified gallstones noted. Dictated by: Daljit Cohen MD on 09/14/2016 at 04:06 PM
--- NOTE | 2016-09-14 16:21 | NUR ---
Dr. Mau Brady on phone with Dr. León
--- NOTE | 2016-09-14 16:50 | NUR ---
Doctor Irish on phone with Dr. León. Mau states he will come to ER to assist with patient.
[2016-09-14] MEDS ORDERED: ROCEPHIN ONE (17:10)
[2016-09-14] MEDS ORDERED: NS 100ML 100 ML IV ONE (17:10)
--- NOTE | 2016-09-14 18:10 | NUR ---
Dr. Mau León is here at patients bedside
--- NOTE | 2016-09-14 18:32 | NUR ---
unable to place peg tube DR SIERRA UNABLE TO PLACE PEG TUBE , [facility]
--- NOTE | 2016-09-14 18:35 | NUR ---
[facility] DESHPANDE [facility] TO ED , [facility]
--- NOTE | 2016-09-14 19:09 | PRM.CONS ---
Consultation Reason for Consult: Reason for Consultation: PEG tube not working History of Present Illness History of Patient Comments The patient is a resident of [facility]. She has multiple medical problems. Including CVA, aphasia. She is fed via a PEG. She had been brought to the ER on Friday because of malfunction with the PEG tube. However, it was functioning again and the patient was able to go back to the [facility] again. She has been brought back today because the tube is not working again. Patient is also noted to have some abdominal distention. Review of Systems Constitutional: No: Fever, Chills, Sweats, Weakness, Malaise, Other Eyes: No: Pain, Vision change, Conjunctivae inflammation, Eyelid inflammation, Other, Redness ENT: No: Ear pain, Ear discharge, Nose pain, Nose discharge, Nose congestion, Mouth pain, Mouth swelling, Throat pain, Throat swelling, Other Respiratory: No: Cough, Dry, Shortness of breath, SOB with excertion, Wheezing , Hemoptysis, Pleuritic Pain, Sputum, Wheezing, Other Cardiovascular: No: Chest Pain, Palpitations, Orthopnea, Paroxysmal Noc. Dyspnea, Edema, Lt Headedness, Other Gastrointestinal: Other (Malfunctioning PEG tube) Genitourinary: No Dysuria, No Frequency, No Incontinence, No Hematuria, No Retention, No Other Musculoskeletal: No: other, neck pain, shoulder pain, arm pain, back pain, hand pain, leg pain, foot pain Skin: Other (Pressure sores in the sacrum and hip.) Neurological: Weakness, Numbness, Incoordination, Change in speech, Confusion, Seizures, Other Allergies: Coded Allergies: No Known Allergies (Unverified , 08/12/16) Scheduled Amlodipine Besylate (Amlodipine Besylate), 5 MG PEG DAILY, (Reported) Aspirin (Aspir 81), 81 MG PEG DAILY, (Reported) Blood Sugar Diagnostic (Blood Glucose Test), 1 EACH [facility] BID, (Reported) Ciprofloxacin Hcl (Cipro), 1 TAB PO BID, (Reported) Fluconazole (Fluconazole), 100 MG PEG DAILY, (Reported) Insulin Glargine,Hum.rec.anlog (Lantus Solostar), 8 UNIT SQ HS, (Reported) Levofloxacin (Levaquin), 500 MG PO DAILY, (Reported) Metoprolol Tartrate 25MG (Lopresser 25MG), 25 MG PEG DAILY, (Reported) Ondansetron (Zofran Odt), 4 MG PEG Q8, (Reported) Scheduled PRN Acetaminophen (Acetaminophen), 500 MG PEG Q6 PRN for PAIN, (Reported) VTE VTE Risk Total Score: 2 VTE Risk Score VTE Risk: Score 0-1 = Low Risk (Aggressive mobilization; early ambulation; no VTE prophylaxis required) Score 2: Moderate Risk (Intermittent/Pneumatic Compression Device OR Lovenox/Heparin/Coumadin) Score 3-4: High Risk (Intermittent/Pneumatic Compression Device AND Lovenox/Heparin/Coumadin) Score > or =5: Highest Risk (Intermittent/Pneumatic Compression Device AND Lovenox/Heparin/Coumadin) Antico:Hep/LMWH/Coum/Xarelto: No Mechanical device ordered: No Assessment/Plan Assessment/Plan Assessment/Plan CT scan shows that the tube is not in the stomach and its end is subcutaneous. The mushroom shaped end is palpable subcutaneously. No free air. Problems: Patient History: No known health problems Plan PEG tube removed. New tube could not be inserted because most likely the opening in the stomach has closed. Patient needs a new PEG tube. ROMANA SIERRA MD Sep 14, 2016 19:09
--- NOTE | 2016-09-14 19:29 | NUR ---
REPORT REPORT GIVEN TO PRETTY AT [facility] ,RN
[2016-09-14 19:30] VITALS: BP 117/63
== END 2016-09-14 19:15 | disposition short-term general hospital (02) ==
LOC: EDBD 11:42 → ER 11:42 → EDUNIT# 11:42 → ER 19:15
DX: N39.0 Urinary tract infection, site not specified (principal); K94.23 Gastrostomy malfunction; R31.9 Hematuria, unspecified; E11.9 Type 2 diabetes mellitus without complications; Z79.4 Long term (current) use of insulin; Z79.82 Long term (current) use of aspirin; Z79.899 Other long term (current) drug therapy; Z79.2 Long term (current) use of antibiotics
CPT/HCPCS: 36415; 36600; 71010; 74177; 80053; 81000; 82803; 83690; 85025; 85610; 85730; 87040 ×2; 87077; 87086; 87186; 96365; 99285; J0696; J7030; J7050; J7120; Q9967